=== PATIENT | male | born 1980 | race Caucasian/White ===

== ENCOUNTER 2018-05-16 14:33 | Emergency (ER) | payer MEDICARE, SELFPAY ==
[2018-05-16 14:34] VITALS: BP 98/66; PULSE 93; RESP 16; TEMP 37; O2SAT 98; BMI 21.2
--- NOTE | 2018-05-16 15:37 | ED.DCSUM_ITS ---
- ER Visit Summary Date of Service: 05/16/18 Chief Complaint: rectal pain and swelling History of Present Illness: The patient is a 38 M with history of Crohn's disease who presents for rectal pain and swelling. Patient states it is been gradually worsening for 2 weeks. It is continuous. Pain is sharp and burning. Patient does have history of hemorrhoids but assumed the pain and swelling is related to his Crohn's disease. He denies any abdominal pain, nausea, vomiting , diarrhea, blood in stool or bright red blood per rectum. No urinary symptoms. Patient is currently not on any medications and does not have a primary care doctor. No fever, chest pain, shortness of breath, cough or other symptoms other than the rectal pain and swelling. Physical Examination: Patient is well-nourished well-developed sitting in bed in no distress. Abdomen is soft, nontender, nondistended. Skin is warm and dry, no rash. Rectal exam shows a large external tender hemorrhoid, pink, no obvious thrombosis. No palpable masses in the rectal vault. No blood on the left. Brown stool on glove. Remainder of exam unremarkable. Test Results: None indicated Emergency Department Course and Treatment: Patient has a painful swollen external hemorrhoid that does not appear thrombosed, thus excision is not indicated. Patient was given a prescription for rectal hydrocortisone cream, rectal phenylephrine/Pramixone cream, and stool softeners. He was advised to try sitz baths. He was given follow-up information for a surgeon if he does not have improvement in his external hemorrhoids or if his condition worsens. Patient was discharged home. Treatment Plan: [] Disposition: Discharge home Impression: External hemorrhoid with associated pain This note was generated with [employer] dictation software. It may contain incorrect words, spelling, and punctuation that were not noted in review of the chart prior to signing ED Disposition - Plan for ED Patient: Disposition: Home or Assisted Living Chief Complaint: Abd Pain Instructions: ED Hemorrhoids Prescriptions: Bisacodyl [Dulcolax] 5 mg PO DAILY 14 Days #14 tablet. Hydrocortisone [Preparation H] 26 gm TP 4X/DAY PRN PRN 10 Days #1 cream..g. PRN Reason: hemorrhoid pain Phenyleph/Pramoxin/Glycr/W.pet [Preparation H Cream] 26 gm RC 4X/DAY PRN PRN 10 Days #1 cream..g. PRN Reason: hemorrhoid pain Referrals: Sonya Rolon MD [STAFF PHYSICIAN] - 1 Week if not improving Additional Instructions: You have a swollen external hemorrhoid. Please use the hydrocortisone cream and the preparation H phenylephrine preparation to help with swelling and pain. Use the stool softener to help keep your stools soft to help prevent further pain. Soak in a warm bath to help with pain and swelling. If you are not having improvement in 3-5 days, call the surgeon on this paperwork to make an appointment for further evaluation and discussion of need for surgical removal. If you have any worsening of your condition or any new concerning symptoms, please return immediately to the emergency department for another evaluation.
--- NOTE | 2018-05-16 16:05 | ED.RN ---
this rn in to dc pt. pt asked for food. this rn states that she is discharging him and he can get something when he leaves. pt states to this rn that he is homeless, asked pt where he was going to get his prescription filled. pt states he was not sure. pt advised to go to people to people for assistance. this rn provided pt with a sandwich and snacks for the road
== END 2018-05-16 16:10 | disposition home or self-care (01) ==
PROVIDERS: Emergency Provider Emergency Medicine
DX: K64.4 Residual hemorrhoidal skin tags (principal); K50.90 Crohn's disease, unspecified, without complications; Z72.0 Tobacco use
CPT/HCPCS: 99282

== ENCOUNTER 2018-12-19 04:55 | Emergency (ER) | payer MEDICARE, SELFPAY ==
[2018-12-19 04:56] VITALS: BP 148/91; PULSE 110; RESP 16; TEMP 36.4; O2SAT 98; BMI 21.6
[2018-12-19 05:26] LABS: Absolute Lymphocyte Count 1.86 X10^3/ul (0.83-4.51); Absolute Neutrophil Count 2.4 X10^3/uL (2.0-7.7); Basophil# 0.02 X10^3/uL; Basophil% 0.4 % (0-1); Eosinophil# 0.17 X10^3/uL; Eosinophils% 3.5 % (0-5); Hematocrit 42.9 % (40-54); Hemoglobin 14.5 g/dl (13.0-16.5); Lymphocyte # 1.86 X10^3/ul (4.0); Lymphocyte % 37.9 % (19-41); Mean Corp Hgb Conc 33.8 g/gl (32-36); Mean Corpuscular Hgb 30.2 pg (27.0-32.0); Mean Corpuscular Volume 89.4 fL (80-94); Mean Platelet Vol. 9.4 fl (6.2-12.0); Monocyte# 0.44 X10^3/uL; Neutrophil # 2.42 X10^3/uL (2.7-7.7); Neutrophil % 49.2 % (47-70); Platelet Count 306 K/mm3 (150-450); RBC Distribution Width CV 12.9 % (11.6-14.6); White Blood Count 4.9 K/mm3 (4.4-11.0)
[2018-12-19 05:27] LABS: POSITIVE COUNT NO; POSITIVE DIFFERENTIAL NO; POSITIVE MORPHOLOGY NO
--- NOTE | 2018-12-19 05:39 | ED.VISSUMM ---
- ER Visit Summary Date of Service: 12/19/18 Chief Complaint: Flank pain History of Present Illness: The patient is a 38 M who presents with pain in his right flank and points to his costovertebral angle. This is been present for 3 days. He believes it is most likely related to a Crohn's flare. He does have a history of Crohn's disease but does not currently have a primary care physician or clinical pharmacy manager. He is not on any maintenance medication. He was on daily prednisone up until a few years ago. Over the last 2 days he has developed diarrhea as well as bright red blood in his stool. He does note that his stool was more solid today however. No nausea vomiting or fevers. Physical Examination: Heart rate 110 vitals otherwise normal Resting comfortably no distress he is not toxic appearing Heart is regular rhythm tachycardia Lungs are clear Abdomen soft no reproducible tenderness nondistended no guarding no rebound No flank or CVA tenderness Test Results: CBC normal. CMP, lipase unremarkable except potassium 3.1. Urinalysis shows ketones no evidence of infection. Emergency Department Course and Treatment: Patient was treated with IV fluids and Toradol here. Given reports of increased diarrhea and blood in stool we will treat with a prednisone burst. He was given a referral to establish a primary care physician. He understands to return for new or worsening symptoms. Patient discharged Treatment Plan: [] Disposition: Discharge Impression: Right flank pain Crohn's disease This note was generated with [employer] dictation software. It may contain incorrect words, spelling, and punctuation that were not noted in review of the chart prior to signing ED Disposition - Plan for ED Patient: Referrals: Care Physician,No Primary [Primary Care Provider] -
[2018-12-19] MEDS: 0.9% Normal Saline 1,000 ML 1000 ML IV (05:47)
[2018-12-19 05:48] LABS: ALB/GLOB Ratio 1.3 RATIO (0.9-2.4); AST(SGOT) 19 U/L (15-37); Alanine Aminotransfer ALT/SGPT 25 U/L (16-61); Albumin, Serum 3.8 g/dL (3.2-5.0); Alkaline Phosphatase 69 U/L (45-117); Anion Gap 8 (5-15); BUN 9 mg/dL (7-18); BUN/Creat Ratio 12.9 RATIO (10-20); Calcium,Total 8.8 mg/dL (8.5-10.1); Chloride 106 mmol/L (98-107); EST Glomerular Filtration Rate 134 mL/min (>60); Est Glom Filt Rate - Afr Amer 162 mL/min (>60); Estimated Creatinine Clearance 129.26 ml/min; Glucose 88 mg/dL (74-106); Lipase 119 U/L (73-393); Potassium 3.1 mmol/L (3.5-5.1); Protein, Total 6.8 g/dL (6.4-8.2); Sodium Level 140 mmol/L (136-145)
[2018-12-19] MEDS: Ketorolac 30 MG/ML Syringe IV (05:48)
[2018-12-19 05:58] LABS: Bacteria 0 SEEN /hpf (None Seen); Red Blood Cells-Urine 0 SEEN /hpf (0-5); Squamous Epithelial Cells - UA 0 SEEN /hpf (0-5)
[2018-12-19 06:10] LABS: White Blood Cells 0-5 SEEN /hpf (0-5)
[2018-12-19 06:11] LABS: Calcium Oxalate Crystals Ur 2+ /hpf (<or=2+); Color, Urine Yellow (Yellow); Glucose, Dipstick NEGATIVE (Normal); Mucous, Urine 2+ /hpf (<or=2+); Protein-Dipstick 30 mg/dl (Negative); Specific Gravity, Urine 1.025 (1.002-1.030); Urine Bilirubin Dipstick 1 mg/dL (Negative); Urine Clarity Clear (Clear)
[2018-12-19 06:12] LABS: Leukocyte Esterase-Dipstick 25 /ul (Negative); Nitrite-Dipstick Negative (Negative); Occult Blood-Urine Negative /ul (Negative); Urine Urobilinogen 1 mg/dl (Normal)
[2018-12-19 06:13] LABS: Ketone-Dipstick 150 mg/dl (Negative)
--- NOTE | 2018-12-19 06:20 | ED.DEP ---
ED Disposition - Plan for ED Patient: Instructions: ED Inflam Bowel Disease Crohn Prescriptions: Prednisone [Deltasone] 60 mg PO DAILY #15 tab Referrals: Care Physician,No Primary [Primary Care Provider] -
[2018-12-19 06:25] VITALS: BP 140/95; PULSE 88; RESP 18; O2SAT 100
== END 2018-12-19 06:30 | disposition home or self-care (01) ==
PROVIDERS: Emergency Provider Emergency Medicine
DX: R10.9 Unspecified abdominal pain (principal); K50.90 Crohn's disease, unspecified, without complications; Z72.0 Tobacco use
CPT/HCPCS: 80053; 81001; 83690; 85025; 96361; 96374; 99285; J7030; A4216

== ENCOUNTER 2019-06-14 20:16 | Emergency (ER) | payer MEDICAID, SELFPAY ==
[2019-06-14 20:16] VITALS: BP 121/71; PULSE 106; RESP 18; TEMP 36.8; BMI 24.3
[2019-06-14 20:50] LABS: Absolute Lymphocyte Count 1.42 X10^3/uL (0.83-4.51); Absolute Neutrophil Count 4.4 X10^3/uL (2.0-7.7); Basophil# 0.02 X10^3/uL; Basophil% 0.3 % (0-1); Eosinophil# 0.34 X10^3/uL; Eosinophils% 4.9 % (0-5); Hematocrit 39.5 % (40-54); Hemoglobin 13.3 g/dL (13.0-16.5); Lymphocyte # 1.42 X10^3/ul (4.0); Lymphocyte % 20.3 % (19-41); Mean Corp Hgb Conc 33.7 g/dL (32-36); Mean Corpuscular Hgb 31.4 pg (27.0-32.0); Mean Corpuscular Volume 93.4 fL (80-94); Mean Platelet Vol. 8.9 fl (6.2-12.0); Monocyte# 0.78 X10^3/uL; Monocyte% 11.1 % (0-10); NRBC Flagged by Analyzer 0 % (0-5); Neutrophil # 4.43 X10^3/uL (2.7-7.7); Neutrophil % 63.3 % (47-70); Platelet Count 317 K/mm3 (150-450); RBC Distribution Width CV 11.7 % (11.6-14.6); RBC Distribution Width SD 39.9 fl (35.1-43.9); Red Blood Count 4.23 M/mm3 (4.6-6.2)
[2019-06-14 21:04] LABS: Anion Gap 5 (5-15); BUN 4 mg/dL (7-18); BUN/Creat Ratio 5.2 RATIO (10-20); Calcium,Total 8.2 mg/dL (8.5-10.1); Chloride 110 mmol/L (98-107); Creatinine, Serum 0.77 mg/dL (0.70-1.30); EST Glomerular Filtration Rate 119 mL/min (>60); Est Glom Filt Rate - Afr Amer 144 mL/min (>60); Estimated Creatinine Clearance 123.38 ml/min; Glucose 95 mg/dL (74-106); Potassium 3.4 mmol/L (3.5-5.1); Sodium Level 142 mmol/L (136-145)
[2019-06-14 21:19] LABS: Alcohol, Blood (Medical)-Serum < 3.0 mg/dL
[2019-06-14 22:17] LABS: Amphetamine Urine VISTA POSITIVE (<1000 ng/mL); Barbiturate Urine VISTA NEGATIVE (< 200 ng/mL); Benzodiazepine Urine VISTA NEGATIVE (< 200 ng/mL); Cocaine Urine VISTA NEGATIVE (< 300 ng/mL); Ecstacy Urine VISTA NEGATIVE (< 500 ng/mL); Methadone Urine VISTA NEGATIVE (< 300 ng/mL); PCP Urine VISTA NEGATIVE (< 25 ng/mL); THC Urine VISTA NEGATIVE (< 50 ng/mL); Vista UDS pH Range 5
--- NOTE | 2019-06-14 22:18 | ED.VISSUMM ---
- ER Visit Summary Date of Service: 06/14/19 Chief Complaint: Suicidal ideation History of Present Illness: The patient is a 39 M who presents with suicidal thoughts. This started today. He states he feels depressed. He has been trying to find the Social Security office to get his benefits restarted but he has not been able to find it. He was wandering around in circles today. He has no specific plan but then states any way that I can do what I would. He has not tried anything today. He has been admitted a few years ago to a psychiatric hospital. Physical Examination: Vital signs reviewed. HEENT exam unremarkable. Heart is regular rate and rhythm without murmurs. Lungs are clear to auscultation. Abdomen is soft and nontender. Extremities reveal no edema. Skin exam normal. Neurologic exam normal. He does have a flat affect. He does voice suicidal thoughts. Test Results: Laboratory studies unremarkable except for potassium 3.4, chloride 110. Tox screen does have amphetamines. Alcohol normal Emergency Department Course and Treatment: She will be evaluated by crisis. Disposition is pending their evaluation. Treatment Plan: [] Disposition: Pending Impression: Suicidal thoughts This note was generated with [employer] dictation software. It may contain incorrect words, spelling, and punctuation that were not noted in review of the chart prior to signing ED Disposition - Plan for ED Patient: Referrals: Care Physician,No Primary [Primary Care Provider] -
[2019-06-14 22:44] VITALS: BP 125/77; PULSE 95; RESP 18; O2SAT 97
[2019-06-14] MEDS: Calcium Carbonate 500 MG Tablet 1000 MG PO (22:52)
[2019-06-14 23:00] VITALS: RESP 18
[2019-06-15] VITALS (13 sets, daily range): BP systolic 106–137; BP diastolic 65–76; PULSE 73–83; RESP 15–18; O2SAT 98–99
--- NOTE | 2019-06-15 04:49 | EKG12_ITS ---
Test Reason : MHC Blood Pressure : / mmHG Vent. Rate : 090 BPM Atrial Rate : 090 BPM P-R Int : 132 ms QRS Dur : 094 ms QT Int : 364 ms P-R-T Axes : 062 065 067 degrees QTc Int : 445 ms Normal sinus rhythm Normal ECG Confirmed by VICTOR HUGO DILLARD, GLENNY ([id number]), visual effects editor CESAR HERNANDEZ ([id number]) on 06/18/2019 9:15:24 AM Referred By: Confirmed By:GLENNY GAY MD
--- NOTE | 2019-06-15 05:00 | ED.RN ---
NO OLD EKGS IN MUSE
[2019-06-15 05:09] LABS: AST(SGOT) 51 U/L (15-37); Alanine Aminotransfer ALT/SGPT 54 U/L (16-61); Albumin, Serum 3.2 g/dL (3.2-5.0); Alkaline Phosphatase 52 U/L (45-117); Globulin 2.8 g/dL (2.2-4.2)
--- NOTE | 2019-06-15 06:49 | ED.RN ---
patient has been accepted at [facility] at this time waiting for bed to open up
--- NOTE | 2019-06-15 09:36 | ED.RN ---
PT GIVEN BREAKFAST TRAY AT APPROXIMATELY 0800. PT DENIED FURTHER NEEDS AT THAT TIME.
== END 2019-06-15 16:30 ==
PROVIDERS: Emergency Medicine; Emergency Provider Emergency Medicine
DX: R45.851 Suicidal ideations (principal); K50.90 Crohn's disease, unspecified, without complications; M79.7 Fibromyalgia; F15.90 Other stimulant use, unspecified, uncomplicated; Z72.0 Tobacco use
CPT/HCPCS: 80048; 80076; 80307; 80320; 85025; 93005; 99284; G0480

== ENCOUNTER 2019-07-09 20:15 | Emergency (ER) | payer MEDICAID, SELFPAY ==
[2019-07-09 20:16] VITALS: BP 150/97; PULSE 120; RESP 18; TEMP 36.9; O2SAT 96; BMI 24.3
--- NOTE | 2019-07-09 21:26 | ED.VIS.GEN ---
History of Present Illness Chief Complaint: Eye Problem Detail of Chief Complaint: Right eye pain and watering Informant: Patient Onset: Today Context: Sudden Onset Current Severity: Moderate Maximum Severity: Moderate Narrative: Patient presents with pain, lights with activity, and watering to his right eye. He thinks he scratched his eye. Symptoms started shortly after taking a shower. He states he been working outside earlier in the day. He does report blurry vision from his right eye. He does not wear glasses or contacts. Past Medical History - Allergies and Home Meds Allergies/Adverse Reactions: Allergies Penicillins Allergy (Verified 07/09/19 20:18) Unknown Primary Care Physician: Care Physician,No Primary [Primary Care Provider] - Prior records reviewed: Yes Past Medical History: - - Reviewed Smoking Status: Current some day smoker Review of Systems General: Denies: Chills, Fever Eyes: Reports: Blurred vision - right ENT: Denies: Bilateral ear pain Cardiovascular: Denies: Chest pain Respiratory: Denies: Dyspnea Gastrointestinal: Denies: Abdominal pain Skin: Denies: Rash Physical Exam Vital Signs/Narrative: Vital Signs Temp Pulse Resp BP Pulse Ox 07/09/19 20:16 98.5 F 120 H 18 150/97 H 96 Inital Vital Signs reviewed: Yes General: Well nourished, Well developed Head: Normocephalic Eyes: - - Right eye injection and tearing. Pupils equal and reactive. Extraocular movements intact. ENT: Moist mucous membranes Cardiovascular: Tachycardia Respiratory: No distress, CTA bilaterally Abdomen: Soft, Nontender Skin: Normal color Neurological: Alert, Oriented x3 Psychological: Normal affect Diagnostic/Tx/Re-eval - Medical Decision Making Tetracaine is applied to the right eye which controls his pain. Fluorescein is applied and there is focal uptake with a small abrasion directly over the pupil. Patient be treated with gentamicin ophthalmic drops. He is referred to Dr. Hall if not improving. ED Disposition - Plan for ED Patient: Disposition: Home or Assisted Living Diagnosis: Corneal abrasion Instructions: ED Corneal Abrasion Referrals: Thad Hall MD [STAFF PHYSICIAN] - 3-5 Days if not improving Additional Instructions: Gentamicin eye drops - one drop 4x/day until pain resolved for 24 hours
[2019-07-09] MEDS: Tetracaine 0.5% Ophthalmic Bottle 1 DRP RIGHT EYE (21:46)
[2019-07-09] MEDS: Fluorescein 1 MG STRIP 1 STRIP RIGHT EYE (21:46)
[2019-07-09] MEDS: Gentamicin Sulfate 1 OPTH.BTL 1 DRP RIGHT EYE (22:19)
[2019-07-09 22:20] VITALS: PULSE 103; O2SAT 99
== END 2019-07-09 22:21 | disposition home or self-care (01) ==
PROVIDERS: Emergency Provider Emergency Medicine
DX: S05.01XA Injury of conjunctiva and corneal abrasion without foreign body, right eye, initial encounter (principal); X58.XXXA Exposure to other specified factors, initial encounter; Y93.9 Activity, unspecified; Y92.9 Unspecified place or not applicable; F17.200 Nicotine dependence, unspecified, uncomplicated
CPT/HCPCS: 99283

== ENCOUNTER 2019-08-17 20:19 | Emergency (ER) | payer MEDICAID, SELFPAY ==
[2019-08-17 20:21] VITALS: BP 119/64; PULSE 85; RESP 18; TEMP 36.4; O2SAT 100; BMI 24.3
--- NOTE | 2019-08-17 20:29 | EKG12_ITS ---
Test Reason : DYSRHYTHMIA Blood Pressure : / mmHG Vent. Rate : 072 BPM Atrial Rate : 072 BPM P-R Int : 128 ms QRS Dur : 094 ms QT Int : 388 ms P-R-T Axes : 050 060 052 degrees QTc Int : 424 ms Normal sinus rhythm Normal ECG Confirmed by VICTOR HUGO DILLARD, GLENNY ([id number]), tape editor LUNA FAITH ([id number]) on 08/20/2019 9:41:52 AM Referred By: SAVANNAH Confirmed By:GLENNY GAY MD
--- NOTE | 2019-08-17 20:30 | ED.VIS.GEN ---
History of Present Illness Chief Complaint: Dizziness Informant: Patient Onset: Days Context: Gradual Onset Timing: Intermittent Current Severity: Moderate Maximum Severity: Moderate Narrative: The patient is a 39-year-old male with history of neuropathy who presents to the emergency department with dizziness and nerve pain. Patient was currently staying at the [facility] [place] [facility] [employer] [facility] He apparently had left about a week ago. He had left his medications behind. He has been without his gabapentin for about 7 days. He states that he started with some mild nausea. Since then, he describes dizziness as a sensation of motion. He states that he just feels generally weak and not himself. He does have a history of chronic fatigue syndrome. He also has a history of Crohn's disease but is not on any medications. Prior similar symptoms: No Recent Illness/Hospitalization: No Past Medical History - Allergies and Home Meds Allergies/Adverse Reactions: Allergies Penicillins Allergy (Verified 08/17/19 20:23) Unknown Primary Care Physician: Care Physician,No Primary [Primary Care Provider] - Prior records reviewed: Yes Past Medical History: - - Crohn's, neuropathy Smoking Status: Current some day smoker Review of Systems General: Denies: Chills, Fever, Sweats Eyes: Denies: Visual changes - bilaterally, Diplopia ENT: Denies: Rhinorrhea, Sore throat Cardiovascular: Denies: Chest pain, Palpitations Respiratory: Denies: Dyspnea, Cough, Dyspnea on exertion Gastrointestinal: Denies: Abdominal pain, Nausea, Vomiting, Diarrhea, Melena, Hematochezia Genitourinary: Denies: Dysuria, Hematuria, Frequency Musculoskeletal: Reports: Myalgias, Arthralgias. Denies: Back pain, Extremity Pain Skin: Denies: Rash, Wounds Neurological: Denies: Headache, Weakness, Numbness Physical Exam Vital Signs/Narrative: Vital Signs Temp Pulse Resp BP Pulse Ox 08/17/19 20:21 97.5 F L 85 18 119/64 100 Inital Vital Signs reviewed: Yes General: Well nourished, Well developed, No Acute Distress Head: Normocephalic, Atraumatic Eyes: Perrl, EOMI ENT: Moist mucous membranes, No rhinorrhea Neck: Supple, Nontender Cardiovascular: Regular rate, Regular rhythm, No murmurs Respiratory: No distress, CTA bilaterally, Chest nontender Abdomen: Soft, Nontender, Nondistended, Normal bowel sounds Back: Nontender, Normal Inspection Extremities: Nontender, No edema Skin: Normal color, No rash Neurological: Alert, Oriented x3, Cranial nerves II-XII grossly intact, Normal Strength, Normal Sensation Psychological: Normal affect, Normal Mood Diagnostic/Tx/Re-eval - Rhythm Strip Rhythm Strip: Sinus Rhythm Rate: 90 Ectopy: None - EKG Initial EKG Interpretation: Sinus Rhythm, No Acute Injury Pattern Prior: Unchanged - Medical Decision Making Medically, I do feel the patient symptoms are likely secondary to medication withdrawal. He has been without his gabapentin for 6 to 7 days now. He is afebrile. Is not meningitic or encephalopathic. Metabolic work-up was pursued and was unremarkable. With fluids, he is feeling improved. He does have his prescription at the [facility] and feels that he can get to and take it. He will be given his nighttime dose now to daquan his withdrawal symptoms. He will be discharged. Impression 1. Medication withdrawal ED Disposition - Plan for ED Patient: Instructions: Taking Your Medications Referrals: Care Physician,No Primary [Primary Care Provider] -
[2019-08-17] MEDS: 0.9% Normal Saline 1,000 ML 1000 ML IV (20:47)
[2019-08-17 20:48] VITALS: RESP 18
[2019-08-17 20:54] LABS: Basophil# 0.03 X10^3/uL; Basophil% 0.7 % (0-1); Eosinophil# 0.17 X10^3/uL; Eosinophils% 3.9 % (0-5); Hematocrit 40.3 % (40-54); Lymphocyte % 39.1 % (19-41); Mean Corp Hgb Conc 32.3 g/dL (32-36); Mean Corpuscular Hgb 29.7 pg (27.0-32.0); Mean Platelet Vol. 8.9 fl (6.2-12.0); Monocyte# 0.45 X10^3/uL; Monocyte% 10.3 % (0-10); NRBC Flagged by Analyzer 0 % (0-5); Neutrophil # 1.99 X10^3/uL (2.7-7.7); Neutrophil % 45.8 % (47-70); Platelet Count 328 K/mm3 (150-450); RBC Distribution Width CV 12.5 % (11.6-14.6); RBC Distribution Width SD 42.3 fl (35.1-43.9); Red Blood Count 4.38 M/mm3 (4.6-6.2); White Blood Count 4.4 K/mm3 (4.4-11.0)
[2019-08-17 21:20] LABS: ALB/GLOB Ratio 1.1 RATIO (0.9-2.4); AST(SGOT) 22 U/L (15-37); Alanine Aminotransfer ALT/SGPT 32 U/L (16-61); Albumin, Serum 3.2 g/dL (3.2-5.0); Alkaline Phosphatase 60 U/L (45-117); Anion Gap 6 (5-15); BUN 6 mg/dL (7-18); BUN/Creat Ratio 7.2 RATIO (10-20); Calcium,Total 8.3 mg/dL (8.5-10.1); Chloride 111 mmol/L (98-107); Creatinine, Serum 0.83 mg/dL (0.70-1.30); EST Glomerular Filtration Rate 109 mL/min (>60); Est Glom Filt Rate - Afr Amer 132 mL/min (>60); Estimated Creatinine Clearance 114.46 ml/min; Globulin 2.8 g/dL (2.2-4.2); Glucose 108 mg/dL (74-106); Potassium 4.2 mmol/L (3.5-5.1); Sodium Level 142 mmol/L (136-145)
[2019-08-17] MEDS: Gabapentin 600 MG Tablet PO (21:45)
[2019-08-17 21:47] VITALS: BP 109/86; PULSE 72; RESP 16; O2SAT 100
== END 2019-08-17 21:50 | disposition home or self-care (01) ==
LOC: ED 21:04
PROVIDERS: Emergency Provider Emergency Medicine
DX: F19.230 Other psychoactive substance dependence with withdrawal, uncomplicated (principal); K50.90 Crohn's disease, unspecified, without complications; G62.9 Polyneuropathy, unspecified; R53.82 Chronic fatigue, unspecified; F17.200 Nicotine dependence, unspecified, uncomplicated
CPT/HCPCS: 80053; 85025; 93005; 96360; 99285; J7030; A4216

== ENCOUNTER 2019-09-11 20:49 | Emergency (ER) | payer MEDICAID, SELFPAY ==
[2019-09-11 20:49] VITALS: BP 127/78; PULSE 133; RESP 17; TEMP 36.5; O2SAT 100; BMI 23.6
--- NOTE | 2019-09-11 20:56 | EKG12_ITS ---
Test Reason : MHC Blood Pressure : / mmHG Vent. Rate : 132 BPM Atrial Rate : 132 BPM P-R Int : 128 ms QRS Dur : 090 ms QT Int : 304 ms P-R-T Axes : 068 069 067 degrees QTc Int : 450 ms Sinus tachycardia Otherwise normal ECG Confirmed by ALEJANDRA DILLARD, NORBERT ([id number]), sports editor CESAR HERNANDEZ ([id number]) on 09/17/2019 11:49:29 AM Referred By: SAVANNAH Confirmed By:CORINNA ROBERTS MD
--- NOTE | 2019-09-11 21:03 | ED.VIS.GEN ---
History of Present Illness Chief Complaint: Mental Health Informant: Patient Onset: Days Context: Gradual Onset Timing: Continuous Current Severity: Moderate Maximum Severity: Moderate Narrative: The patient is a 39-year-old male with history of schizoaffective disorder who presents to the emergency department with increasing paranoia and manic behavior. He states that he is unsure if he has been taking his medications. Over the past few days, he has been increasingly manic. He states he is been restless, feels like he cannot relax, and has been thinking that there are people following him and looking after him. He denies being suicidal or homicidal. He denies any drug use. He denies any fevers or chills. Prior similar symptoms: Yes Recent Illness/Hospitalization: No Past Medical History - Allergies and Home Meds Allergies/Adverse Reactions: Allergies Penicillins Allergy (Verified 09/11/19 20:49) Unknown Primary Care Physician: Care Physician,No Primary [Primary Care Provider] - Prior records reviewed: Yes Past Medical History: - - Schizoaffective disorder Smoking Status: Current every day smoker Review of Systems General: Denies: Chills, Fever, Sweats Eyes: Denies: Visual changes - bilaterally, Diplopia ENT: Denies: Rhinorrhea, Sore throat Cardiovascular: Denies: Chest pain, Palpitations Respiratory: Denies: Dyspnea, Cough, Dyspnea on exertion Gastrointestinal: Denies: Abdominal pain, Nausea, Vomiting, Diarrhea, Melena, Hematochezia Genitourinary: Denies: Dysuria, Hematuria, Frequency Musculoskeletal: Denies: Back pain, Extremity Pain Skin: Denies: Rash, Wounds Neurological: Denies: Headache, Weakness, Numbness Psych: Reports: Depression, Anxiety Physical Exam Vital Signs/Narrative: Vital Signs Temp Pulse Resp BP Pulse Ox 09/11/19 20:49 97.7 F L 133 H 17 127/78 H 100 Inital Vital Signs reviewed: Yes General: Well nourished, Well developed, No Acute Distress Head: Normocephalic, Atraumatic Eyes: Perrl, EOMI ENT: Moist mucous membranes, No rhinorrhea Neck: Supple, Nontender Cardiovascular: Regular rate, No murmurs, Tachycardia Respiratory: No distress, CTA bilaterally, Chest nontender Abdomen: Soft, Nontender, Nondistended, Normal bowel sounds Back: Nontender, Normal Inspection Extremities: Nontender, No edema Skin: Normal color, No rash Neurological: Alert, Oriented x3, Cranial nerves II-XII grossly intact, Normal Strength, Normal Sensation Psychological: Normal affect, Normal Mood Diagnostic/Tx/Re-eval - Medical Decision Making The patient presents with increasing neo, paranoia, and increasing abnormal behavior. He does have disorganized thoughts and pressured speech. He denies being suicidal or homicidal. He was given oral Ativan. Screening labs obtained were unremarkable. His EKG demonstrates sinus tachycardia without acute ischemia. Urine is currently pending. The patient will undergo crisis evaluation given his increasing paranoia. Final disposition is pending. Impression 1. Acute neo with paranoia ED Disposition - Plan for ED Patient: Referrals: Care Physician,No Primary [Primary Care Provider] -
[2019-09-11 21:50] LABS: Absolute Neutrophil Count 5.3 X10^3/uL (2.0-7.7); Basophil# 0.02 X10^3/uL; Basophil% 0.3 % (0-1); Eosinophil# 0.09 X10^3/uL; Eosinophils% 1.2 % (0-5); Hemoglobin 13.7 g/dL (13.0-16.5); Lymphocyte % 17.6 % (19-41); Mean Corp Hgb Conc 34.3 g/dL (32-36); Mean Corpuscular Hgb 30.3 pg (27.0-32.0); Mean Corpuscular Volume 88.5 fL (80-94); Monocyte# 0.64 X10^3/uL; Monocyte% 8.7 % (0-10); NRBC Flagged by Analyzer 0 % (0-5); Neutrophil # 5.32 X10^3/uL (2.7-7.7); Neutrophil % 72.1 % (47-70); Platelet Count 370 K/mm3 (150-450); RBC Distribution Width CV 12.4 % (11.6-14.6); RBC Distribution Width SD 40.2 fl (35.1-43.9); Red Blood Count 4.52 M/mm3 (4.6-6.2); White Blood Count 7.4 K/mm3 (4.4-11.0)
[2019-09-11] MEDS: LORazepam 1 MG Tablet 2 MG PO (21:58)
--- NOTE | 2019-09-11 21:58 | ED.RN ---
pt paranoid about taking PO ativan, refused even with Dr's reassurance. Then told RN he would take them. 2 new ativan pulled from [facility]. With much encouragement- pt took 1 mg. refused second. med wasted.
[2019-09-11 22:10] LABS: ALB/GLOB Ratio 1.3 RATIO (0.9-2.4); AST(SGOT) 21 U/L (15-37); Alanine Aminotransfer ALT/SGPT 28 U/L (16-61); Albumin, Serum 3.7 g/dL (3.2-5.0); Alkaline Phosphatase 71 U/L (45-117); Anion Gap 7 (5-15); BUN 12 mg/dL (7-18); BUN/Creat Ratio 12.7 RATIO (10-20); Calcium,Total 8.7 mg/dL (8.5-10.1); Chloride 106 mmol/L (98-107); Creatinine, Serum 0.95 mg/dL (0.70-1.30); EST Glomerular Filtration Rate 93 mL/min (>60); Est Glom Filt Rate - Afr Amer 113 mL/min (>60); Globulin 2.8 g/dL (2.2-4.2); Glucose 116 mg/dL (74-106); Potassium 4.2 mmol/L (3.5-5.1); Protein, Total 6.5 g/dL (6.4-8.2); Sodium Level 139 mmol/L (136-145)
[2019-09-11 23:57] LABS: Amphetamine Urine VISTA POSITIVE (<1000 ng/mL); Barbiturate Urine VISTA NEGATIVE (< 200 ng/mL); Benzodiazepine Urine VISTA NEGATIVE (< 200 ng/mL); Cocaine Urine VISTA NEGATIVE (< 300 ng/mL); Ecstacy Urine VISTA POSITIVE (< 500 ng/mL); Methadone Urine VISTA NEGATIVE (< 300 ng/mL); PCP Urine VISTA NEGATIVE (< 25 ng/mL); THC Urine VISTA NEGATIVE (< 50 ng/mL); Vista UDS pH Range 6
[2019-09-12 00:22] VITALS: RESP 16
--- NOTE | 2019-09-12 00:23 | ED.DEP ---
ED Disposition - Plan for ED Patient: Disposition: Home or Assisted Living Diagnosis: Paranoia Instructions: Schizo-Affective Disorder Referrals: Counseling,Center [GROUP OF PHYSICIANS] - As soon as possible
[2019-09-12 00:34] VITALS: BP 149/92; PULSE 110; RESP 14; O2SAT 100
== END 2019-09-12 01:14 | disposition home or self-care (01) ==
PROVIDERS: Emergency Provider Emergency Medicine
DX: F25.9 Schizoaffective disorder, unspecified (principal); Z79.899 Other long term (current) drug therapy; F17.200 Nicotine dependence, unspecified, uncomplicated
CPT/HCPCS: 36415; 80053; 80307; 80320; 85025; 93005; 99283; G0480

== ENCOUNTER 2019-09-30 02:47 | Emergency (ER) | payer MEDICAID, SELFPAY ==
[2019-09-30 02:49] VITALS: BP 146/102; PULSE 88; RESP 16; TEMP 36.4; O2SAT 100; BMI 22.8
[2019-09-30 04:27] VITALS: BP 130/78; PULSE 75; RESP 16; O2SAT 100
--- NOTE | 2019-09-30 05:46 | ED.VIS.BACK ---
History of Present Illness Chief Complaint: Back Informant: Patient Onset: Days Context: Gradual Onset Narrative: Patient is a 39-year-old male presenting with a vague complaint of back pain. He states he has been having some lower back pain however it is currently mild. He denies any injury. He states he is been homeless for 3 years and is staying in the [facility]. He is more concerned because he is cold and wet. He is requesting a TB test as well as to check his B12 level. Patient states he wants a physical so he can qualify for further benefits. Patient currently Past Medical History - Allergies and Home Meds Allergies/Adverse Reactions: Allergies Penicillins Allergy (Verified 09/11/19 20:49) Unknown Primary Care Physician: Arlene Quintero [Primary Care Provider] - Past Medical History: - - Affective disorder, chronic pain, depression, bipolar disorder Lives: Homeless, - Smoking Status: Current every day smoker Review of Systems General: Reports: Malaise. Denies: Chills, Fever, Sweats Eyes: Denies: Visual changes - bilaterally, Diplopia ENT: Denies: Rhinorrhea, Sore throat Cardiovascular: Denies: Chest pain, Palpitations Respiratory: Denies: Dyspnea, Cough, Dyspnea on exertion Gastrointestinal: Denies: Abdominal pain, Nausea, Vomiting, Diarrhea, Melena, Hematochezia Genitourinary: Denies: Dysuria, Hematuria, Frequency Musculoskeletal: Reports: Extremity Pain - Bilateral feet pain. Denies: Back pain Skin: Denies: Rash, Wounds Neurological: Denies: Headache, Weakness, Numbness Psych: Reports: Depression, Suicidal thoughts Physical Exam Vital Signs/Narrative: Vital Signs Temp Pulse Resp BP Pulse Ox 09/30/19 04:27 75 16 130/78 H 100 09/30/19 02:49 97.6 F L 88 16 146/102 H 100 Inital Vital Signs reviewed: Yes General: Well nourished, Well developed, Unkempt Head: Normocephalic, Atraumatic Eyes: Perrl, EOMI ENT: Moist mucous membranes, No rhinorrhea, TM's clear Neck: Supple, Nontender Cardiovascular: Regular rate, Regular rhythm, No murmurs Respiratory: No distress, CTA bilaterally, Chest nontender Abdomen: Soft, Nontender, Nondistended, Normal bowel sounds Back: Normal Inspection, Nontender. Negative for: Spinal tenderness, Paraspinal Tenderness, CVA tenderness Extremeties: Nontender, No edema Skin: No rash, - - Maceration and discoloration at the base of the feet consistent with trench foot Neuro: Alert, Oriented, Normal Strength, Normal Sensation, Normal DTR, Normal Gait Psychological: Depressed, - - Patient initially comes in asking for resources and stating that he does feel that he wants to shoot himself because of his situation. Patient is not have access to a gun. Patient then becomes more tangential and states that he feels that there is a collective group that is keeping him homeless and limiting his ability to get help. Patient does express hopelessness. He feels that he needs to fight others but is very nonspecific about who these other people are. Diagnostic/Tx/Re-eval Laboratory Data 09/30/19 09/30/19 09/30/19 06:25 06:25 06:25 WBC 6.5 RBC 4.98 Hgb 14.8 Hct 43.5 MCV 87.3 MCH 29.7 MCHC 34.0 RDW Std Deviation 40.0 RDW Coeff of Faraz 12.7 Plt Count 436 MPV 8.8 Immature Gran % (Auto) 0.300 Neut % (Auto) 61.0 Lymph % (Auto) 28.2 [place] % (Auto) 7.4 Eos % (Auto) 2.8 Baso % (Auto) 0.3 Absolute Neuts (auto) 4.0 Absolute Lymphs (auto) 1.83 Nucleated RBC % 0 Sodium 135 L Potassium 3.4 L Chloride 101 Carbon Dioxide 28.0 Anion Gap 6 BUN 14 Creatinine 1.09 Estim Creat Clear Calc 86.65 Est GFR (MDRD) Af Amer 96 Est GFR (MDRD) Non-Af 79 BUN/Creatinine Ratio 12.8 Glucose 98 Calcium 9.2 Ethyl Alcohol < 3.0 - Medical Decision Making Patient is initially checked in for evaluation of back pain. He does not seem to actually have any back pain at this time. As I spent time talking to them patient seems to have more tangential and paranoid speech. He does not display capacity to care for himself as he seems to be homeless and is does not seem to have logical or goal-directed thoughts. Patient also is admitting to suicidal ideations. He does seem to want help from his situation but I do not know if he is capable of doing these things on his own. Is also possible that patient is malingering because it is cold outside and he is homeless. Patient is cooperative and medical clearance is performed. Patient be evaluated by crisis. Patient signed out to oncoming physician for final medical clearance and final evaluation by crisis for disposition. ED Disposition - Plan for ED Patient: Diagnosis: Depression, Trench feet Referrals: Arlene Quintero [Primary Care Provider] -
--- NOTE | 2019-09-30 06:10 | ED.RN ---
Provided PT with resources as requested. Informed PT of services at [facility] counseling services, and calling his insurance for rides to medical appointments. PT states he does not have a bus card, unable to get to [facility] as he cannot walk that far. PT did not like my resources and stated he could just claim that he was suicidal so he could go to [facility] and they would get everything he needed set up. Pt stated he could have a friend pick him up from [facility] but they were unable to get him to [place]. PT informed of [facility], he stated they were full and he has asked a few times, over the past two years and they are full. PT has not asked recently.
[2019-09-30 06:32] LABS: Absolute Lymphocyte Count 1.83 X10^3/uL (0.83-4.51); Basophil# 0.02 X10^3/uL; Basophil% 0.3 % (0-1); Eosinophil# 0.18 X10^3/uL; Eosinophils% 2.8 % (0-5); Hematocrit 43.5 % (40-54); Hemoglobin 14.8 g/dL (13.0-16.5); Lymphocyte # 1.83 X10^3/ul (4.0); Lymphocyte % 28.2 % (19-41); Mean Corpuscular Hgb 29.7 pg (27.0-32.0); Mean Corpuscular Volume 87.3 fL (80-94); Mean Platelet Vol. 8.8 fl (6.2-12.0); Monocyte# 0.48 X10^3/uL; Monocyte% 7.4 % (0-10); NRBC Flagged by Analyzer 0 % (0-5); Neutrophil # 3.95 X10^3/uL (2.7-7.7); Platelet Count 436 K/mm3 (150-450); RBC Distribution Width CV 12.7 % (11.6-14.6); Red Blood Count 4.98 M/mm3 (4.6-6.2); White Blood Count 6.5 K/mm3 (4.4-11.0)
[2019-09-30 06:45] LABS: Anion Gap 6 (5-15); BUN 14 mg/dL (7-18); BUN/Creat Ratio 12.8 RATIO (10-20); Calcium,Total 9.2 mg/dL (8.5-10.1); Chloride 101 mmol/L (98-107); Creatinine, Serum 1.09 mg/dL (0.70-1.30); EST Glomerular Filtration Rate 79 mL/min (>60); Est Glom Filt Rate - Afr Amer 96 mL/min (>60); Estimated Creatinine Clearance 86.65 ml/min; Glucose 98 mg/dL (74-106); Potassium 3.4 mmol/L (3.5-5.1); Sodium Level 135 mmol/L (136-145)
--- NOTE | 2019-09-30 07:03 | ED.RN ---
PER DR. GARCIA, PATIENT DOES NOT NEED A 1:1 SITTER.
[2019-09-30 07:08] LABS: Alcohol, Blood (Medical)-Serum < 3.0 mg/dL
--- NOTE | 2019-09-30 08:46 | ED.RN ---
AFTER MANY ATTEMPTS TO GET THE PT TO GIVE A URINE SAMPLE AND SEVERAL DRINKS, PT REFUSED TO TRY. EXPLAINED THE NECESSITY AND THE OPTION OF HIM TRYING OR A STRAIGHT CATH BEING USED TO GET THE SAMPLE. PT IS REFUSING TO COOPERATE. PT IS VOICING HIS WILLINGNESS TO HIT AND FIGHT STAFF AND STANDS UP OUT OF THE BED PULLING HIS HAIR BACK STATING HE IS HOMICIDAL AT THE MOMENT. SECURITY AT BEDSIDE ATTEMPTING TO CONVINCE HIM TO TRY TO VOID. WE LEFT THE ROOM FOR A COUPLE MINUTES TO GIVE HIM THE REQUESTED PRIVACY TO VOID. PT NEVER WENT IN THE THE BR OR TRIED. WITH [facility]S ASSISTANCE PT AGAIN ENCOURAGED TO VOID INSTEAD OF BEING CATHED. PT AFTER MORE CONVERSATION FINALLY VOIDED. CRISIS AND PHYSICIAN IS AWARE.
[2019-09-30 08:56] LABS: Mucous, Urine 0 SEEN /hpf (<or=2+); Squamous Epithelial Cells - UA 0 SEEN /hpf (0-5)
[2019-09-30 09:06] LABS: Color, Urine Yellow (Yellow); Glucose, Dipstick NEGATIVE (Normal); Ketone-Dipstick 5 mg/dl (Negative); Urine Bilirubin Dipstick Negative (Negative); Urine Clarity Sl Cldy (Clear)
[2019-09-30 09:07] LABS: Leukocyte Esterase-Dipstick 500 /ul (Negative); Nitrite-Dipstick Positive (Negative); Occult Blood-Urine 10 /ul (Negative); Protein-Dipstick 30 mg/dl (Negative); Specific Gravity, Urine 1.025 (1.002-1.030); Urine Urobilinogen Normal (Normal)
[2019-09-30 09:08] LABS: Red Blood Cells-Urine 0-5 SEEN /hpf (0-5); White Blood Cells 25-50 SEEN /hpf (0-5)
[2019-09-30 09:09] LABS: Bacteria 1+ /hpf (None Seen)
[2019-09-30 09:12] LABS: Amphetamine Urine VISTA POSITIVE (<1000 ng/mL); Barbiturate Urine VISTA NEGATIVE (< 200 ng/mL); Benzodiazepine Urine VISTA NEGATIVE (< 200 ng/mL); Cocaine Urine VISTA NEGATIVE (< 300 ng/mL); Ecstacy Urine VISTA NEGATIVE (< 500 ng/mL); Methadone Urine VISTA NEGATIVE (< 300 ng/mL); PCP Urine VISTA NEGATIVE (< 25 ng/mL); THC Urine VISTA NEGATIVE (< 50 ng/mL); Vista UDS pH Range 6
--- NOTE | 2019-09-30 09:40 | ED.RN ---
ALONDRA WITH CRISIS IS GOING TO WORK ON PLACEMENT
--- NOTE | 2019-09-30 11:08 | ED.RN ---
ALONDRA WITH CRISIS MADE THE REFERRAL TO [facility] FOR PLACEMENT
[2019-09-30 12:13] VITALS: BP 134/62; PULSE 72; RESP 15; O2SAT 98
[2019-09-30 13:12] VITALS: BP 134/62; PULSE 72; RESP 15; TEMP 36.4; O2SAT 98
== END 2019-09-30 13:14 ==
PROVIDERS: Emergency Provider Emergency Medicine
DX: F32.9 Major depressive disorder, single episode, unspecified (principal); T69.022A Immersion foot, left foot, initial encounter; T69.021A Immersion foot, right foot, initial encounter; R45.851 Suicidal ideations; M54.5 Low back pain; G89.29 Other chronic pain; F17.200 Nicotine dependence, unspecified, uncomplicated; Z59.0 Homelessness; Z88.0 Allergy status to penicillin; Z79.899 Other long term (current) drug therapy
CPT/HCPCS: 36415; 80048; 80307; 80320; 81001; 85025; 99285; G0480

== ENCOUNTER 2019-10-14 09:12 | Emergency (ER) | payer MEDICAID, SELFPAY ==
[2019-10-14 09:15] VITALS: BP 144/88; PULSE 88; RESP 16; TEMP 36.4; O2SAT 100; BMI 21.4
--- NOTE | 2019-10-14 09:54 | ED.DCSUM_ITS ---
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 He told police he was going to jump off of a bridge. They went to get him after he locked himself in the bathroom at a gas station. Patient does have a history of bipolar disorder was recently admitted to [facility] a couple weeks ago. He has not attempted suicide today. He is currently homeless. He states he is having abdominal pain which is chronic for him. No vomiting or diarrhea he has had normal bowel movements he denies melena or hematochezia. No fevers. He states he has been taking his medication. Prior similar symptoms: Yes Recent Illness/Hospitalization: Yes <Akil Mortensen - Last Filed: 10/14/19 13:08> Chief Complaint: Suicidal Past Medical History <Kerrie Palomo - Last Filed: 10/14/19 10:21> Prior records reviewed: Yes Past Medical History: - - bipolar disorder Surgical History: - - colectomy Lives: Homeless Smoking Status: Current every day smoker <Akil Mortensen - Last Filed: 10/14/19 13:08> - Allergies and Home Meds Allergies/Adverse Reactions: Allergies Penicillins Allergy (Verified 10/14/19 09:25) Unknown Primary Care Physician: [facility] [Primary Care Provider] - Review of Systems All systems negative except as indicated General: Denies: Chills, Fever Eyes: Denies: Visual changes - bilaterally, Blurred Vision - bilaterally ENT: Denies: Rhinorrhea, Sore throat Cardiovascular: Denies: Chest pain, Palpitations Respiratory: Denies: Dyspnea, Cough Gastrointestinal: Reports: Abdominal pain. Denies: Nausea, Vomiting, Diarrhea, Constipation, Melena, Hematochezia Genitourinary: Denies: Dysuria, Hematuria, Frequency Musculoskeletal: Denies: Neck pain, Back pain Skin: Denies: Rash, Abscess, Abrasions Neurological: Denies: Headache, Weakness, Parasthesia Psych: Reports: Depression, Suicidal thoughts, Suicidal ideations Hematologic: Denies: Easy bruising, Easy bleeding <Akil Mortensen - Last Filed: 10/14/19 13:08> Physical Exam Vital Signs/Narrative: Vital Signs Temp Pulse Resp BP Pulse Ox 10/14/19 09:15 97.5 F L 88 16 144/88 H 100 <Kerrie Palomo - Last Filed: 10/14/19 10:21> Vital Signs/Narrative: Vital Signs Temp Pulse Resp BP Pulse Ox 10/14/19 09:15 97.5 F L 88 16 144/88 H 100 Inital Vital Signs reviewed: Yes General: Well nourished, Well developed, Unkempt Head: Normocephalic, Atraumatic Eyes: Perrl, EOMI ENT: Moist mucous membranes Neck: Supple, Nontender Cardiovascular: Regular rate, Regular rhythm Respiratory: No distress, CTA bilaterally Abdomen: Soft, Nontender, Nondistended, Normal bowel sounds, No masses Back: Nontender, Normal Inspection Extremities: Nontender, No Edema Skin: Normal color, No rash, No Trauma Neurological: Alert, Oriented x3 Psych: Normal Speech Pattern, Logical sequential goal directed thoughts, Depressed, Irritable, Suicidal thoughts <Akil Mortensen - Last Filed: 10/14/19 13:08> Diagnostic/Tx/Re-eval Patient was seen with Akil the PA agree with the history and physical as above the patient is awake and alert head neck chest abdomen remarkable moving all 4 extremities he is quite upset over the fact that the police force him to come to the hospital He indicates that he feels if the system is hassling him , Indicates he was at admitted to a mental health facility discharged with prescriptions follow-up instructions that he is unable to execute due to his homelessness he cannot buy the prescription he cannot make his appointments and he feels the system is not helping him and if the system continues to hassle him he might consider jumping off a bridge but that is a longstanding since he has had because of his social situation at this time undergo screening evaluation will ask mental health services to make an assessment <Kerrie Palomo - Last Filed: 10/14/19 10:21> Restraints applied: No Repeat interview and exam performed by/time: Akil Mortensen at 1300 Patient has been evaluated by crisis and they have decided to pink slip him and he will be transferred back to the [facility] facility. We did give the patient Ativan, GI cocktail, Pepcid and a dose of Imodium for his abdominal pain and agitation. He is resting comfortably. On repeat evaluation he remains resting comfortably and he does not need any further medications at this time. <Akil Mortensen - Last Filed: 10/14/19 13:08> ED Disposition <Kerrie Palomo - Last Filed: 10/14/19 10:21> <Akil Mortensen - Last Filed: 10/14/19 13:08> - Plan for ED Patient: Disposition: Psychiatric Hospital or Unit Diagnosis: Suicidal ideation, Bipolar disorder, Abdominal pain Referrals: [facility] [Primary Care Provider] -
--- NOTE | 2019-10-14 10:04 | NURSING ---
CALLED CRISIS FOR DR OVALLE
[2019-10-14] MEDS: LORazepam 1 MG Tablet 2 MG PO (10:33)
[2019-10-14] MEDS: Loperamide 2 MG Capsule PO (10:33)
[2019-10-14] MEDS: Mag Hydrox/Al Hydrox/Simeth 30 ML UDC PO (10:33)
[2019-10-14] MEDS: Famotidine 20 MG Tablet 40 MG PO (10:33)
[2019-10-14 10:47] LABS: Absolute Lymphocyte Count 0.82 X10^3/uL (0.83-4.51); Absolute Neutrophil Count 5.3 X10^3/uL (2.0-7.7); Basophil# 0.02 X10^3/uL; Basophil% 0.3 % (0-1); Eosinophil# 0.21 X10^3/uL; Eosinophils% 3.1 % (0-5); Hematocrit 40.9 % (40-54); Hemoglobin 13.5 g/dL (13.0-16.5); Lymphocyte # 0.82 X10^3/ul (4.0); Lymphocyte % 11.9 % (19-41); Mean Corpuscular Hgb 30.1 pg (27.0-32.0); Mean Corpuscular Volume 91.3 fL (80-94); Mean Platelet Vol. 8.9 fl (6.2-12.0); Monocyte# 0.47 X10^3/uL; Monocyte% 6.8 % (0-10); NRBC Flagged by Analyzer 0 % (0-5); Neutrophil # 5.33 X10^3/uL (2.7-7.7); Neutrophil % 77.6 % (47-70); Platelet Count 405 K/mm3 (150-450); RBC Distribution Width CV 13.3 % (11.6-14.6); RBC Distribution Width SD 44.4 fl (35.1-43.9); Red Blood Count 4.48 M/mm3 (4.6-6.2); White Blood Count 6.9 K/mm3 (4.4-11.0)
[2019-10-14 11:02] LABS: ALB/GLOB Ratio 1.1 RATIO (0.9-2.4); AST(SGOT) 13 U/L (15-37); Alanine Aminotransfer ALT/SGPT 28 U/L (16-61); Albumin, Serum 3.6 g/dL (3.2-5.0); Alkaline Phosphatase 65 U/L (45-117); Anion Gap 7 (5-15); BUN 7 mg/dL (7-18); BUN/Creat Ratio 9.6 RATIO (10-20); Calcium,Total 8.6 mg/dL (8.5-10.1); Chloride 108 mmol/L (98-107); Creatinine, Serum 0.73 mg/dL (0.70-1.30); EST Glomerular Filtration Rate 127 mL/min (>60); Est Glom Filt Rate - Afr Amer 153 mL/min (>60); Estimated Creatinine Clearance 121.58 ml/min; Globulin 3.2 g/dL (2.2-4.2); Glucose 79 mg/dL (74-106); Lipase 317 U/L (73-393); Potassium 3.5 mmol/L (3.5-5.1); Protein, Total 6.8 g/dL (6.4-8.2); Sodium Level 140 mmol/L (136-145)
[2019-10-14 11:04] LABS: Amphetamine Urine VISTA POSITIVE (<1000 ng/mL); Barbiturate Urine VISTA NEGATIVE (< 200 ng/mL); Benzodiazepine Urine VISTA NEGATIVE (< 200 ng/mL); Cocaine Urine VISTA NEGATIVE (< 300 ng/mL); Ecstacy Urine VISTA POSITIVE (< 500 ng/mL); Methadone Urine VISTA NEGATIVE (< 300 ng/mL); PCP Urine VISTA NEGATIVE (< 25 ng/mL); THC Urine VISTA NEGATIVE (< 50 ng/mL); Vista UDS pH Range 5
[2019-10-14 11:08] LABS: Alcohol, Blood (Medical)-Serum < 3.0 mg/dL
--- NOTE | 2019-10-14 11:16 | NURSING ---
CALLED CRISIS AGAIN
[2019-10-14 11:32] VITALS: BP 139/94; PULSE 83; O2SAT 98
[2019-10-14 14:17] VITALS: BP 139/94; PULSE 83; RESP 16; O2SAT 100
== END 2019-10-14 14:47 ==
PROVIDERS: Emergency Provider Physician Assistant Medical
DX: F31.9 Bipolar disorder, unspecified (principal); R45.851 Suicidal ideations; R10.9 Unspecified abdominal pain; G89.29 Other chronic pain; F17.200 Nicotine dependence, unspecified, uncomplicated; Z59.0 Homelessness; Z79.899 Other long term (current) drug therapy; Z88.0 Allergy status to penicillin
CPT/HCPCS: 80053; 80307; 80320; 83690; 85025; 99285; G0480

== ENCOUNTER 2022-08-19 17:13 | Emergency (ER) | payer MEDICARE, MEDICAID, SELFPAY ==
[2022-08-19 17:14] VITALS: BP 138/86; PULSE 105; RESP 16; TEMP 36.8; O2SAT 99; BMI 23.6
--- NOTE | 2022-08-19 17:28 | ED.VIS.LOWEX ---
HPI History of Present Illness Chief Complaint: Numb/Ting Narrative Narrative: 42-year-old male states that he has been homeless and living out in the cold until 3 days ago presents with 3 days of bilateral foot pain and swelling. While he states he also has past medical history of Crohn's and GERD, he asked for omeprazole because he has GERD and has not taken any of his medication. His main concern though, is that his bilateral feet, mainly his toes are swollen and discolored. He has come in from out of the cold, and states that he has been out in cold weather before, but has never had this experience. The ends of his feet are sore and painful, and swollen. He feels pressure sensation in them. PFSH PFS Home Medications omeprazole 20 mg capsule,delayed release 20 mg PO DAILY 06/14/19 [History Last Taken Unknown] Allergy/AdvReac Type Severity Reaction Status Date / Time cefazolin [From [facility]] Allergy Hives Verified 08/19/22 17:18 Penicillins Allergy Unknown Verified 08/19/22 17:18 Surgical History History of bowel resection Social History Smoking Status: Current every day smoker tobacco type: cigarettes ROS ROS ED ROS Narrative Constitutional: No fever, no chills. HEENT: No sore throat. No neck pain. No loss of vision. No rhinorrhea. Cardiovascular: No chest pain. No palpitations. No pedal edema. Respiratory: No cough, no shortness of breath. Abdominal: No abdominal pain. No nausea. No vomiting. Genitourinary: No dysuria. No hematuria. Musculoskeletal: No myalgias. Bilateral foot pain and swelling, mainly forefoot and toes right greater than left. Neurologic: No headaches. No dizziness. No lightheadedness. Skin: No rash. No change in color. Psychiatric: No depression. No anxiety. EXAM Physical Exam Narrative Exam Narrative: Afebrile. Vital signs noted. Nontoxic-appearing. HEENT: Normocephalic. Atraumatic. PERRL, EOMI. Neck soft and supple. No point tenderness or step off. Cardiovascular: Regular rate and rhythm. No murmurs, rubs, or gallops appreciated. Respiratory: No tachypnea. Lungs clear to auscultation bilaterally. Gastrointestinal: Abdomen soft, nontender, with normoactive bowel sounds. No rebound or guarding. Neurological: Awake. Alert. Nonfocal, nonlateralizing. Skin: No rash. Discolored toes, purpleish mainly on right foot. Musculoskeletal: No pedal edema. Full range of motion extremities. Inspection of bilateral feet shows abrasions to the soles of the bilateral forefoot. Toes are discolored mainly on the right foot and toes 2, 3, 4, and minimally and 5. Noted swelling of bilateral feet and toes mainly in the forefoot. Palpable dorsalis pedis pulse bilaterally. Exam consistent with trench foot. No purulent drainage noted. Const Vital Signs: 08/19/22 17:14 08/19/22 17:43 Temperature 98.2 F Temperature Source Temporal Pulse Rate 105 H Respiratory Rate 16 19 H Blood Pressure 138/86 H Blood Pressure Mean 103 Pulse Ox 99 Oxygen Delivery Method Room Air MDM MDM MDM Narrative Medical decision making narrative: Patient was given famotidine here. I do not feel that antibiotics are necessarily indicated. Patient states he has no way of getting any prescription medication regardless. I do feel that his exam is most consistent with trench foot from him wearing the same shoes and socks and then becoming wet over the past few weeks. He was told to keep his feet clean and dry. He will take [id number] medications as needed. Smoking cessation was discussed. He was told of the possibility of autoamputation of his toes, secondary infection, and the need for surgical debridement. I feel he can be discharged home with follow-up. [facility] was [facility]. Unfortunately, social work is unavailable in the emergency department here today. Disposition is discharged home in stable condition. Discharge Plan Triage Chief Complaint: Numb/Ting ED Provider: Branodn Jade Dx/Rx/DC Orders Clinical Impression: Trench feet, Gastroesophageal reflux disease Instructions: ED Pain, Acute, Uncertain Cause, ED Infec Skin Fungal Tinea Ch Prescriptions: No Action omeprazole 20 MG capsule 20 mg PO DAILY Primary Care Provider: [facility] Referrals: [facility] [Primary Care Provider] - 1 Day for another exam Activity Restrictions/Additional Instructions: Keep your feet and toes clean and dry. Follow-up with the [facility] as soon as possible to recheck the wounds on your feet. Disposition Disposition: Home, Self Care
[2022-08-19] MEDS: Famotidine 20 MG Tablet PO (17:29)
[2022-08-19 17:43] VITALS: RESP 19
[2022-08-19] MEDS: Acetaminophen 500 MG Tablet 1000 MG PO (17:45)
== END 2022-08-19 17:54 | disposition home or self-care (01) ==
LOC: ED 17:53
PROVIDERS: Emergency Provider Emergency Medicine; Visit Provider Emergency Medicine
DX: T69.021A Immersion foot, right foot, initial encounter (principal); T69.022A Immersion foot, left foot, initial encounter; X31.XXXA Exposure to excessive natural cold, initial encounter; K21.9 Gastro-esophageal reflux disease without esophagitis; Z59.00 Homelessness unspecified; F17.210 Nicotine dependence, cigarettes, uncomplicated
CPT/HCPCS: 99283

== ENCOUNTER 2022-08-25 13:31 | Emergency (ER) | payer MEDICARE, MEDICAID, SELFPAY ==
[2022-08-25 13:32] VITALS: BP 130/89; PULSE 109; RESP 18; TEMP 36.3; O2SAT 99; BMI 24.0
--- NOTE | 2022-08-25 15:50 | EX.ED.DYSGE1 ---
HPI History of Present Illness Chief Complaint: Lower Extremity Injury Informant: patient Narrative Narrative: Patient is a 42-year-old male with history of methamphetamine abuse and recent frostbite of his bilateral feet presenting with worsening bilateral foot pain. Initially his right foot was numb and the pain was worse in his left foot however he is having increased pain of his bilateral feet over the past few days. Is been taking ibuprofen with no relief. The frostbite occurred 1 week ago. He follows with the [facility]. He does not have any podiatry follow-up. He states that he is currently living at a recovery house and has never had any issues with opioid addiction. Is wanting something for pain. Has swelling and pain of his ankles and feet but no other complaints at this time. Denies any systemic symptoms. PFSH PFSH Home Medications omeprazole 20 mg capsule,delayed release 20 mg PO DAILY 06/14/19 [History Last Taken Unknown] gabapentin 800 mg tablet 800 mg PO TID #21 tabs 08/25/22 [Rx Last Taken Unknown] ibuprofen 600 mg tablet 600 mg PO Q6H PRN pain #30 tabs 08/25/22 [Rx Last Taken Unknown] Allergy/AdvReac Type Severity Reaction Status Date / Time cefazolin [From [facility]] Allergy Hives Verified 08/25/22 13:31 Penicillins Allergy Unknown Verified 08/25/22 13:31 Surgical History History of bowel resection Social History Smoking Status: Current every day smoker tobacco type: cigarettes ROS ROS ED Constitutional Constitutional ED: Denies chills or fever(s) Eyes Eyes: Denies change in vision ENT ENT ED: Denies rhinorrhea Cardiovascular Cardiovascular: Denies chest pain Respiratory/Chest Respiratory/Chest: Denies cough Gastrointestinal Gastrointestinal: Denies nausea or vomiting Musculoskeletal Musculoskeletal: Reports other Details: bilateral foot pain ; Denies arthralgias or myalgias Integumentary Reports rash Neurologic Neurologic: Reports paresthesias; Denies headache(s) or weakness Psychiatric Psychiatric: Denies anxiety or depression Hematologic/Lymphatic Hematologic/Lymphatic: Denies easy bleeding or easy bruising EXAM Physical Exam Const Vital Signs: 08/25/22 13:32 Temperature 97.4 F L Temperature Source Temporal Pulse Rate 109 H Respiratory Rate 18 Blood Pressure 130/89 H Blood Pressure Mean 102 Pulse Ox 99 Oxygen Delivery Method Room Air Positive well nourished and well developed General Appearance ED: well developed and NAD HEENT Reports moist mucous membranes Eyes PERRL Neck supple Chest Wall inspection of chest normal Resp normal respiratory effort and clear to auscultation bilaterally Cardio regular rate and regular rhythm Extremity Extremity Narrative: Patient has a mild tenderness to palpation of the bilateral feet most pronounced in the toes and the balls of the feet. Some diffuse swelling of the bilateral ankles and feet. 2+ DP pulses. Range of motion preserved. General Extremety ED: Yes edema General Extremity: edema Neuro oriented x3 Neuro Narrative: Subjective paresthesias of the bilateral feet Psych mental status grossly normal Skin Skin Narrative: Patient has scattered hemorrhagic blisters on his toes as well as the balls of his feet. Most pronounced on the right second toe. No significant bulla appreciated. This is consistent with frostbite that is healing. MDM MDM MDM Narrative Medical decision making narrative: Patient is evaluated for continued/worsening pain of his bilateral feet. He had developed frostbite of his feet a week ago. He is since staying in a recovery house is protected from the elements. He describes the pain more as a paresthesia. Given his history of drug abuse I am hesitant to give the patient opioids. I spoke with Dr. Townsend, podiatry, who recommended NSAIDs as well as gabapentin. He will follow-up with the patient outpatient. Patient is given IM Toradol and gabapentin in the ER. He does seem more comfortable. Is given a course of gabapentin. Is discharged home in improved and stable condition. Counseled on generalized wound care as well as keeping his feet clean and dry. He is agreeable with this. Discharge Plan Triage Chief Complaint: Lower Extremity Injury ED Provider: Mary Lou Diggs Dx/Rx/DC Orders Clinical Impression: Frostbite of feet, bilateral, Bilateral foot pain Instructions: ED Frostbite Prescriptions: New gabapentin 800 mg tablet 800 mg PO TID Qty: 21 0RF ibuprofen 600 mg tablet 600 mg PO Q6H PRN (Reason: pain) Qty: 30 0RF No Action omeprazole 20 MG capsule 20 mg PO DAILY Primary Care Provider: [facility] Referrals: Vickey Townsend DPM [Med Staff - Active Staff] - 2 Days for wound check [facility] [Primary Care Provider] - Disposition Disposition: Home, Self Care Discharge Date/Time: 08/25/22 16:34
[2022-08-25] MEDS: Ketorolac 15 MG/ML Vial IM (15:52)
[2022-08-25] MEDS: Gabapentin 800 MG Tablet PO (15:55)
== END 2022-08-25 16:34 | disposition home or self-care (01) ==
PROVIDERS: Emergency Provider Emergency Medicine; Visit Provider Emergency Medicine
DX: T33.821A Superficial frostbite of right foot, initial encounter (principal); M79.671 Pain in right foot; M79.672 Pain in left foot; F17.210 Nicotine dependence, cigarettes, uncomplicated; M25.571 Pain in right ankle and joints of right foot; T33.822A Superficial frostbite of left foot, initial encounter; M25.572 Pain in left ankle and joints of left foot
CPT/HCPCS: 96372; 99283

== ENCOUNTER 2022-08-27 16:17 | Emergency (ER) | payer MEDICARE, MEDICAID, SELFPAY ==
[2022-08-27 16:18] VITALS: BP 132/116; PULSE 115; RESP 16; TEMP 36.2; O2SAT 98; BMI 24.0
--- NOTE | 2022-08-27 16:48 | EDS_ITS ---
HPI History of Present Illness Chief Complaint: Lower Extremity Injury Detail of Chief Complaint: Bilateral foot pain Informant: patient Onset/Context/Timing Onset: Weeks Context: Gradual Onset Narrative Narrative: Patient presents with pain to the bilateral feet. He got frostbite about a week and a half ago. He was seen in the ER on August 25 secondary to pain. He was given Toradol and gabapentin in the emergency room. He states when he left the ER he was able to walk okay and felt better. Has been taking gabapentin and ibuprofen without improvement. He has not followed up with a [facility] or with Dr. Townsend who he was referred to. He presents back today stating the pain is getting worse and he is having difficulty walking. He is as ti for something stronger for pain. 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 PFSH PFSH Medical History no medical history no medical history Home Medications omeprazole 20 mg capsule,delayed release 20 mg PO DAILY 06/14/19 [History Last Taken Unknown] gabapentin 800 mg tablet 800 mg PO TID #21 tabs 08/25/22 [Rx Last Taken Unknown] ibuprofen 600 mg tablet 600 mg PO Q6H PRN pain #30 tabs 08/25/22 [Rx Last Taken Unknown] hydrocodone-acetaminophen 5-325mg 5mg-325mg 1 tab PO BID PRN pain 3 days #6 tabs 08/27/22 [Rx Last Taken Unknown] Allergy/AdvReac Type Severity Reaction Status Date / Time cefazolin [From [facility]] Allergy Hives Verified 08/27/22 16:17 Penicillins Allergy Unknown Verified 08/27/22 16:17 Surgical History History of bowel resection Social History Smoking Status: Current every day smoker tobacco type: cigarettes ROS ROS ED Constitutional Constitutional ED: Denies chills or fever(s) Eyes Eyes: Denies change in vision or discharge from eye(s) ENT ENT ED: Denies discharge from eye(s), rhinorrhea or sore throat Cardiovascular Cardiovascular: Denies chest pain or palpitations Respiratory/Chest Respiratory/Chest: Denies cough or dyspnea Gastrointestinal Gastrointestinal: Denies abdominal pain, nausea or vomiting Genitourinary Genitourinary ED: Denies dysuria Musculoskeletal Musculoskeletal: Reports extremity pain; Denies back pain Integumentary Denies Abrasions or rash Neurologic Neurologic: Denies headache(s) or weakness Allergic/Immunologic Allergic/Immunologic ED: Denies lip swelling or urticaria EXAM Physical Exam Const Vital Signs: 08/27/22 16:18 Temperature 97.2 F L Temperature Source Temporal Pulse Rate 115 H Respiratory Rate 16 Blood Pressure 132/116 H Blood Pressure Mean 121 Pulse Ox 98 Oxygen Delivery Method Room Air Positive well nourished and well developed General Appearance ED: well developed HEENT Reports normocephalic and head/scalp atraumatic Eyes PERRL and EOMs intact bilaterally Neck supple Chest Wall inspection of chest normal and palpation of chest normal Resp normal respiratory effort and clear to auscultation bilaterally Cardio regular rate and regular rhythm GI normal to inspection, nondistended, normoactive bowel sounds Palpation: soft Extremity Extremity Narrative: Dark skin discoloration to the plantar surface of his feet over the distal metatarsal region. No open wounds. Good cap refill distally. Neuro oriented x3 and no sensory deficits noted Sensorium / Orientation: alert Motor Exam: strength 5/5 throughout Psych mental status grossly normal MDM MDM MDM Narrative Medical decision making narrative: Patient was given IM Toradol and 1 tab of p.o. [place]. Treatment and Re-Evaluation Narrative: I performed an [place]AR[place] report. Patient signed any controlled substances other than the gabapentin in the last year. I told I will write him for 6 tabs of pain medication to get him through the weekend. Any further prescriptions need to come from either his primary care physician, [facility], or from podiatry, Dr. Townsend. Gauze pads were applied to the area of pain and Neville wraps are applied to both feet to give extra padding and support. At this time there is no evidence of infection. Discharge Plan Triage Chief Complaint: Lower Extremity Injury ED Provider: Tiera Carbajal Dx/Rx/DC Orders Clinical Impression: Frostbite of feet, bilateral, Bilateral foot pain Instructions: ED Frostbite Prescriptions: New hydrocodone-acetaminophen 5-325 mg tablet 1 tab PO BID PRN (Reason: pain) 3 Days Qty: 6 0RF No Action omeprazole 20 MG capsule 20 mg PO DAILY gabapentin 800 mg tablet 800 mg PO TID Qty: 21 0RF ibuprofen 600 mg tablet 600 mg PO Q6H PRN (Reason: pain) Qty: 30 0RF Primary Care Provider: [facility] Referrals: Vickey Townsend DPM [Med Staff - Active Staff] - As soon as possible [facility] [Primary Care Provider] - As soon as possible Disposition Disposition: Home, Self Care
[2022-08-27] MEDS: HYDROcodone Bitartrate/Apap 5/325 Tablet PO (17:01)
[2022-08-27] MEDS: Ketorolac 60 MG/2 ML Vial IM (17:02)
[2022-08-27 18:14] VITALS: BP 129/74; PULSE 62; RESP 15; O2SAT 98
== END 2022-08-27 18:15 | disposition home or self-care (01) ==
PROVIDERS: Emergency Provider Emergency Medicine; Visit Provider Emergency Medicine
DX: T33.821A Superficial frostbite of right foot, initial encounter (principal); T33.822A Superficial frostbite of left foot, initial encounter; F17.210 Nicotine dependence, cigarettes, uncomplicated; X58.XXXA Exposure to other specified factors, initial encounter
CPT/HCPCS: 96372; 99283

== ENCOUNTER 2022-09-07 13:02 | Outpatient (RCR) | payer MEDICARE, MEDICAID, SELFPAY ==
[2022-09-07 13:12] VITALS: BP 123/85; PULSE 113; RESP 16; TEMP 36.6; BMI 24.3
--- NOTE | 2022-09-07 16:02 | HP.PCM_ITS ---
History of Present Illness Date of Service: 09/07/22 Chief Complaint: Frostbite of feet, right foot pain History of Wound: Patient is 42 year old male who presents to the wound healing center after obtaining frostbite while sleeping outside. He was first seen in the ED on 08/25/22 for foot pain caused by the frostbite that occurred the week before the ED visit. He was given Toradol and Gabapentin and referred to [facility]. He is now living at a half way house, so he no longer is in the elements. He returned to the ED on 08/27/22 for bilateral foot pain. At that time he had not followed up with PCP or podiatry. He was seeking pain medication. He comes in today for further evaluation. He denies any history of illicit drug use, although it is noted in his chart he has a history of methadone abuse. He states his right foot is so painful that it is numb and tingly. He tells me he has followed up with podiatry and they have done nothing to help. He states he saw Dr. Marrero. He denies having any x-rays done of his right foot. He has been keeping his feet dry. He denies fever, chills, nausea and vomiting. Progress of Wound: There are no wounds on his right foot. There is hardened dark skin surrounding his 3rd, 4th and 5th toes and on the proximal plantar surface of his foot. PFSH Home Medications omeprazole 20 mg capsule,delayed release 20 mg PO DAILY 06/14/19 [History Last Taken Unknown] gabapentin 800 mg tablet 800 mg PO TID #21 tabs 08/25/22 [Rx Last Taken Unknown] ibuprofen 600 mg tablet 600 mg PO Q6H PRN pain #30 tabs 08/25/22 [Rx Last Taken Unknown] cyanocobalamin (vitamin B-12) 1,000 mcg/mL injection solution mcg subcut QWEEK 09/07/22 [History Last Taken Unknown] Allergy/AdvReac Type Severity Reaction Status Date / Time cefazolin [From [facility]] Allergy Hives Verified 08/27/22 16:17 Penicillins Allergy Hives Verified 09/07/22 13:28 Surgical History History of bowel resection Social History (Updated 09/15/22 @ 14:05 by Kary Webster NP, ANIMAL DOCTOR-C) Smoking Status: Current every day smoker tobacco type: cigarettes substance use type: former substance user Date of last use: denies use of illicit substances but has history of positive tox screens. ROS Constitutional Constitutional: Reports other Details: Patient is anxious and jittery ; Denies fever(s), frequent falls or headache(s) Eyes Eyes: Reports none ENT HEENT: Reports none Cardiovascular Cardiovascular: Denies chest pain or dyspnea Respiratory/Chest Respiratory/Chest: Denies cough or dyspnea Gastrointestinal Gastrointestinal: Reports none Musculoskeletal Musculoskeletal: Reports stiffness and tingling Integumentary Integumentary: Reports skin pain Neurologic Neurologic: Reports as per HPI, numbness and tingling Psychiatric Psychiatric: Reports anxiety and difficulty concentrating Endocrine Endocrinology: Reports none Vital Signs Vital Signs Vital Signs: 09/07/22 13:12 Temperature 97.8 F Temperature Source Temporal Pulse Rate 113 H Respiratory Rate 16 Blood Pressure 123/85 H Blood Pressure Mean 97 Blood Pressure Source Monitor Blood Pressure Position Sitting Blood Pressure Location Right Arm Oxygen Delivery Method Room Air Weight Weight: 160 lb Body Mass Index (BMI) 24.3 Physical Exam Const alert and oriented x3 General Appearance: anxious HEENT normocephalic Head and Scalp: atraumatic Eyes General Eye: normal appearance of both eyes Neck full ROM Resp normal respiratory effort, normal air movement and clear to auscultation bilaterally Effort and Inspection: able to speak in complete sentences Cardio regular rate and regular rhythm GI non-tender Back/Spine normal ROM Extremity Extremity Narrative: Bilateral foot pain with walking, especially on the right foot. Peripheral Pulses: Yes dorsalis pedis pulses present Skin Skin Narrative: Right foot pedal pulses palp. Skin on 3, 4,5 th digit is darkened, thick, and dry. Also has darkening on the plantar surface, just proximal to the toes. No ulcers present. The thickened skin is from his toes swelling after his initial frostbite and the skin has hardened and dried. Able to remove the dry, hard skin from his 3rd, 4th and 5th toe without difficulty. The skin underneath is intact, pink, his capillary refill is good. The dry hard skin was causing pressure and pain on his toes. Currently unable to remove any of the darkened skin on the plantar surface of foot. This should continue to be monitored. Neuro oriented x3 Psych cooperative Appearance: grossly normal and appropriate Activity / Motor Behavior: fidgetting Speech: normal speech Debridement Note Debridement Note No debridement was completed: No debridement was completed today Charges/Coding Visit Charges Office Visits / Consults: 14433 OV L4 Est Assessment/Plan Assessment/Plan (1) Pain in right foot: CODE(S): M79.671 - Pain in right foot (2) Frostbite of foot, right: CODE(S): T33.821A - Superficial frostbite of right foot, initial encounter; X31.XXXA - Exposure to excessive natural cold, initial encounter (3) Frostbite of feet, bilateral: CODE(S): T33.821A - Superficial frostbite of right foot, initial encounter; T33.822A - Superficial frostbite of left foot, initial encounter PLAN: Plan Patient evaluated at the wound healing center. No active wounds. Removed hardened skin on right toes #3, 4,5 without difficulty. Skin under is pink and intact with good capillary refill. Hopefully this will help make walking easier. I will order an xray of his right foot since he is complaining of so much pain and is walking with a limp. Instructed him to follow up with Dr. Marrero as scheduled on 09/21/22. There is no need for him to follow up at the wound center since he has no open wounds and no edema. Greater than 35 minutes spent with patient with evaluating, treating, educating and plan of care and with review of records and documenting.
== END 2022-09-07 15:32 | disposition home or self-care (01) ==
LOC: WC 13:02
PROVIDERS: Visit Provider Nurse Practitioner Family
DX: T33.821A Superficial frostbite of right foot, initial encounter (principal); T33.822A Superficial frostbite of left foot, initial encounter; X31.XXXA Exposure to excessive natural cold, initial encounter; M79.671 Pain in right foot; F17.210 Nicotine dependence, cigarettes, uncomplicated; Z79.899 Other long term (current) drug therapy
CPT/HCPCS: 99213; G0463

== ENCOUNTER 2025-04-29 20:27 | Emergency (ER) | payer MEDICARE, MEDICAID, SELFPAY ==
[2025-04-29 20:28] VITALS: BP 124/79; PULSE 102; RESP 22; TEMP 36.6; O2SAT 100; BMI 23.1
[2025-04-29 21:20] LABS: Hematocrit 38.5 % (40-54); Hemoglobin 13.1 g/dL (13.0-16.5); Immature Granulocytes Count 0.010 X10^3/uL (0.0-0.0); Mean Corp Hgb Conc 34.0 g/dL (32-36); Mean Corpuscular Volume 89.1 fL (80-94); Mean Platelet Vol. 8.7 fl (6.2-12.0); NRBC Flagged by Analyzer 0 % (0-5); Platelet Count 393 K/mm3 (150-450); RBC Distribution Width CV 12.5 % (11.6-14.6); RBC Distribution Width SD 41.1 fl (35.1-43.9); Red Blood Count 4.32 M/mm3 (4.6-6.2); White Blood Count 5.6 K/mm3 (4.4-11.0)
[2025-04-29 21:38] LABS: Anion Gap 12 (5-15); BUN 7 mg/dL (4-19); BUN/Creat Ratio 8.6 RATIO (10-20); Calcium,Total 9.0 mg/dL (7.6-11.0); Carbon Dioxide 23.5 mmol/L (21.0-32.0); Chloride 105 mmol/L (98-108); Estimated Creatinine Clearance 111.63 ml/min (50-250); Glucose 130 mg/dL (70-99); Potassium 3.4 mmol/L (3.3-5.1)
--- NOTE | 2025-04-29 22:00 | EX.ED.DYSGE1 ---
HPI History of Present Illness Chief Complaint: General Illness Detail of Chief Complaint: Triage note was reviewed. Patient demanded Informant: patient Onset/Context/Timing Onset: - (Unable to determine. Patient told me to do my fucking job . He informed me that I am asking too many questions.) Context: - (Unable to determine) Timing: - ( unable to determine) Quality: I do not feel well. I have not felt well since I was born Location: Unable to determine Current Severity: Apparently his entire life Worsened by: I hate this town Relieved by: Nothing Associated Symptoms Associated Symptoms: Not able to determine Narrative Narrative: Patient is a 45-year-old male. I was informed by the security support analyst that he has a history of amphetamine use and is homeless. Triage document he was in the waiting area for over 3 hours. He then states he needed to be seen. When I went in to speak with him he told me he needs his adrenal levels checked. I asked if he had a history of adrenal insufficiency or was recently on steroids and he told me to do my job. I informed him that I need to ask him questions to determine what tests are appropriate. His response was do your fucking job . Patient states he has been depressed all his life. Patient has suicidal thoughts all his life. He has no specific plan. He denies headache, visual, ocular auditory symptoms. He denies cardiac respiratory symptoms. His only complaint is I do not feel well and I want checked out. Prior similar symptoms: No Recent Illness/Hospitalization: No [facility] Home Medications ?Medication ?Instructions ?Recorded ?Last Taken ?Type omeprazole 20 mg capsule,delayed 20 mg PO DAILY 06/14/19 Unknown History release cyanocobalamin (vitamin B-12) mcg subcut QWEEK 09/07/22 Unknown History 1,000 mcg/mL injection solution Allergy/AdvReac Type Severity Reaction Status Date / Time cefazolin (From [facility]) Allergy Hives Verified 08/27/22 16:17 Penicillins Allergy Hives Verified 09/07/22 13:28 Family History no significant family his Surgical History (Reviewed 09/15/22 @ 13:59 by Kary Webster [employer], [employer]) History of bowel resection Social History (Updated 04/29/25 @ 22:[address] Rian Strange MD) housing: homeless Smoking Status: Current every day smoker tobacco type: cigarettes and e-cigarettes substance use type: former substance user Date of last use: denies use of illicit substances but has history of positive tox screens. and amphetamines ROS ROS ED Constitutional Constitutional ED: Denies chills, fever(s), subjective or sweats Eyes Eyes: Denies blurry vision or change in vision ENT ENT ED: Denies ear pain, rhinorrhea or sore throat Cardiovascular Cardiovascular: Denies chest pain or palpitations Respiratory/Chest Respiratory/Chest: Denies cough, dyspnea or dyspnea on exertion Gastrointestinal Gastrointestinal: Denies abdominal pain, diarrhea, nausea or vomiting Musculoskeletal Musculoskeletal: Denies arthralgias or myalgias Integumentary Denies rash Neurologic Neurologic: Denies paresthesias or weakness Psychiatric Psychiatric: Reports depression and suicidal thoughts; Denies suicidal ideation Endocrine Endocrinology: Denies cold intolerance or heat intolerance Hematologic/Lymphatic Hematologic/Lymphatic: Reports systems reviewed and no addt'l complaints, except as documented EXAM Physical Exam Const Vital Signs: 04/29/25 20:28 04/29/25 21:45 Temperature 97.8 F Temperature Source Temporal Pulse Rate 102 H Respiratory Rate 22 H Respiratory Effort Normal Non-Labored Blood Pressure 124/79 H Blood Pressure Mean 94 Pulse Ox 100 Oxygen Delivery Method Room Air Positive well nourished and well developed Constitutional Narrative: Not well-groomed. Vital signs reveal tachycardia and tachypnea. Is not hypoxic nor is he febrile. General Appearance ED: well developed; Negative for pallor HEENT Reports moist mucous membranes HEENT Narrative: Head is atraumatic no cephalic. Ears normal. Nares patent. Eyes PERRL and EOMs intact bilaterally Resp normal respiratory effort Cardio regular rate and regular rhythm Back/Spine no CVA tenderness Extremity normal to inspection General Extremety ED: Negative for edema or tenderness General Extremity: Negative for edema Neuro oriented x3 and CN's II-XII intact bilaterally Sensorium / Orientation: alert Motor Exam: strength 5/5 throughout Psych Psych Narrative: Inappropriate language. Attitude: agitated Skin no rashes or lesions noted, no wounds and skin turgor normal General Skin Exam: Negative for jaundice or pallor MDM MDM MDM Narrative Medical decision making narrative: Patient was informed I need to ask him questions. He said I am done answering her questions . History & Record Review Additional record(s) reviewed:: Prior outpatient record (Seen by plastics 2021 for frostbite of his feet.) and Prior ED visit (For follow Lul by Dr. Tiera Fall August 2022.) Lab Data Attestation: I reviewed the patient's lab results. Lab results narrative: CBC is unremarkable. MCV is normal. Electrolyte panel is remarkable for slight elevation in glucose of 130 with a normal CO2 anion gap. Labs: Laboratory Results - last 24 hr 04/29/25 21:14 WBC 5.6 RBC 4.32 L Hgb 13.1 Hct 38.5 L MCV 89.1 MCH 30.3 MCHC 34.0 RDW Std Deviation 41.1 RDW Coeff of Faraz 12.5 Plt Count 393 MPV 8.7 Immature Gran % (Auto) 0.200 Neut % (Auto) 58.3 Lymph % (Auto) 27.3 [place] % (Auto) 10.6 H Eos % (Auto) 3.1 Baso % (Auto) 0.5 Absolute Neuts (auto) 3.2 Absolute Lymphs (auto) 1.52 Nucleated RBC % 0 Sodium 141 Potassium 3.4 Chloride 105 Carbon Dioxide 23.5 Anion Gap 12 BUN 7 Creatinine 0.80 Estim Creat Clear Calc 111.63 Est GFR (MDRD) Non-Af 111 BUN/Creatinine Ratio 8.6 L Glucose 130 H Calcium 9.0 Treatment and Re-Evaluation :: Since there is no evidence of anemia. There is no kidney disease electrolyte abnormality patient will be discharged to home. Discharge Plan Triage Chief Complaint: General Illness ED Provider: Rian Strange Dx/Rx/DC Orders Clinical Impression: Fatigue, Pernicious anemia, Homeless, History of illicit drug use, Nondiabetic hyperglycemia, Encounter for medical screening examination Instructions: ED Weakness Uncertain Cause Prescriptions: No Action omeprazole 20 MG capsule 20 mg PO DAILY cyanocobalamin (vitamin B-12) 1,000 mcg/mL Solution SUBCUT QWEEK Primary Care Provider: Care Physician,No Primary Referrals: [facility] [Provider Group] - 3-5 Days Care Physician,No Primary [Primary Care Provider] - Print Language: Congolese Disposition Disposition: Home, Self Care
[2025-04-29 22:21] VITALS: BP 134/78; PULSE 98; RESP 18; TEMP 36.6; O2SAT 100
--- NOTE | 2025-04-29 22:22 | ED.RN ---
Security called to help escort Pt out of ED. Pt refusing to leave when discharged. Pt swearing at staff. Escorted out of ED.
== END 2025-04-29 22:25 | disposition home or self-care (01) ==
PROVIDERS: Emergency Provider Emergency Medicine; Visit Provider Emergency Medicine
DX: D51.0 Vitamin B12 deficiency anemia due to intrinsic factor deficiency (principal); R53.83 Other fatigue; F17.210 Nicotine dependence, cigarettes, uncomplicated; Z59.00 Homelessness unspecified; R45.851 Suicidal ideations; R73.9 Hyperglycemia, unspecified; F32.A Depression, unspecified; F17.290 Nicotine dependence, other tobacco product, uncomplicated; Z87.898 Personal history of other specified conditions
CPT/HCPCS: 80048; 85025; 99282

== ENCOUNTER 2025-04-30 20:06 | Emergency (ER) | payer MEDICARE, MEDICAID, SELFPAY ==
[2025-04-30 20:07] VITALS: BP 115/87; PULSE 100; RESP 18; TEMP 36.7; O2SAT 98; BMI 22.6
--- NOTE | 2025-04-30 20:27 | EX.ED.DYSGE1 ---
HPI History of Present Illness Chief Complaint: Suicidal Narrative Narrative: Chief complaint and HPI: Suicidal ideation. 45-year-old male with past medical history of illicit drug abuse, pernicious anemia, homelessness presents for evaluation of suicidal ideation. Patient states that he needs to see a psychiatrist so that he does not kill himself. Patient states he has a previous history of schizophrenia and depression although he states he does not believe he is schizophrenic. He endorses suicidal ideation but does not have a plan. He states that if he does not get out of [place] he will kill himself as this is the only way to get out of this town. He states that the police are stealing all of his money and they are putting voices in his head. States he is not currently taking any mental health medications. He denies any fever, chills, shortness of breath, chest pain abdominal pain, nausea, vomiting. Review of systems: See HPI Medications: As listed on the chart Allergies: As listed on the chart PFSH: Per chart Vital signs: As listed on the chart. Reviewed. Physical exam: Gen: A&O x3, NAD Head: Normocephalic, atraumatic Eyes: No sclera icterus, conjunctiva clear, PERRL, EOMI ENT: Moist mucous membranes Neck: Trachea midline, No JVD CV: RRR, no murmurs, no peripheral edema Resp: Lungs CTA BL, no w/r/c GI: Abd soft, non-distended, non-tender, no r/r/g Musc: Full ROM, no deformity Skin: Warm, dry Neuro: Alert, oriented, grossly intact, sensation intact Psych: Cooperative, Disheveled PFS PFS Home Medications ?Medication ?Instructions ?Recorded ?Last Taken ?Type omeprazole 20 mg capsule,delayed 20 mg PO DAILY 06/14/19 Unknown History release cyanocobalamin (vitamin B-12) mcg subcut QWEEK 09/07/22 Unknown History 1,000 mcg/mL injection solution Allergy/AdvReac Type Severity Reaction Status Date / Time cefazolin (From [facility]) Allergy Hives Verified 04/30/25 20:07 Penicillins Allergy Hives Verified 04/30/25 20:07 Surgical History History of bowel resection Social History housing: homeless Smoking Status: Current every day smoker tobacco type: cigarettes and e-cigarettes substance use type: former substance user Date of last use: denies use of illicit substances but has history of positive tox screens. and amphetamines EXAM Physical Exam Const Vital Signs: 04/30/25 20:07 04/30/25 21:07 Temperature 98.1 F Temperature Source Temporal Pulse Rate 100 78 Respiratory Rate 18 Blood Pressure 115/87 H 130/87 H Blood Pressure Mean 96 101 Pulse Ox 98 100 Oxygen Delivery Method Room Air MDM MDM MDM Narrative Medical decision making narrative: 45-year-old male with past medical history of illicit drug abuse, pernicious anemia, homelessness presents for evaluation of suicidal ideation. Patient states that he needs to see a psychiatrist so that he does not kill himself. Patient states he has a previous history of schizophrenia and depression although he states he does not believe he is schizophrenic. He endorses suicidal ideation but does not have a plan. He states that if he does not get out of [place] he will kill himself as this is the only way to get out of this town. He states that the police are stealing all of his money and they are putting voices in his head. Of note, patient was seen in our emergency department yesterday by one of my partners. He wanted his adrenal levels checked. He endorsed chronic depression and chronic suicidal ideation. He denied any visual or auditory symptoms. He had basic lab work that was unremarkable and discharged home. Differential diagnosis includes but is not limited to schizophrenia, paranoia, electrolyte abnormality, substance abuse. Patient pink slipped due to his suicidal ideation. Patient benefit from inpatient psychiatric placement and crisis consult. Mental health laboratory workup ordered. CBC without leukocytosis or anemia. CMP unremarkable. Urine drug screen positive for amphetamines. Alcohol level unremarkable. Patient medically cleared for inpatient psychiatric facility. Crisis to evaluate patient. Impression: 1. Suicidal ideation 2. Paranoia 3. Methamphetamine abuse Lab Data Labs: Laboratory Results - last 24 hr 04/30/25 20:16 WBC 6.4 RBC 4.48 L Hgb 13.3 Hct 41.2 MCV 92.0 MCH 29.7 MCHC 32.3 RDW Std Deviation 41.9 RDW Coeff of Faraz 12.6 Plt Count 445 MPV 8.8 Immature Gran % (Auto) 0.500 Neut % (Auto) 64.4 Lymph % (Auto) 24.0 [place] % (Auto) 8.9 Eos % (Auto) 1.6 Baso % (Auto) 0.6 Absolute Neuts (auto) 4.2 Absolute Lymphs (auto) 1.54 Nucleated RBC % 0 Sodium 142 Potassium 3.7 Chloride 105 Carbon Dioxide 25.8 Anion Gap 11 BUN 6 Creatinine 0.92 Estim Creat Clear Calc 98.61 Est GFR (MDRD) Non-Af 105 BUN/Creatinine Ratio 6.5 L Glucose 86 Calcium 8.8 Total Bilirubin 0.37 AST 19 ALT 21 Alkaline Phosphatase 68 Total Protein 6.3 Albumin 3.9 Globulin 2.4 Albumin/Globulin Ratio 1.6 Urine Opiates Screen NEGATIVE U Buprenorphine Qual NEGATIVE Ur Oxycodone Screen NEGATIVE Urine Methadone Screen NEGATIVE Urine Fentanyl Screen NEGATIVE Ur Barbiturates Screen NEGATIVE Ur Phencyclidine Scrn NEGATIVE Ur Amphetamines Screen PRESUMPTIVE POSITIVE U Benzodiazepines Scrn NEGATIVE Urine Cocaine Screen NEGATIVE U Cannabinoids Screen NEGATIVE Ethyl Alcohol < 10.1 Discharge Plan Triage Chief Complaint: Suicidal ED Provider: Yuniel Morris Dx/Rx/DC Orders Prescriptions: No Action omeprazole 20 MG capsule 20 mg PO DAILY cyanocobalamin (vitamin B-12) 1,000 mcg/mL Solution SUBCUT QWEEK Primary Care Provider: Care Physician,No Primary Referrals: Care Physician,No Primary [Primary Care Provider] - Print Language: [place]ican
[2025-04-30 20:34] LABS: Hematocrit 41.2 % (40-54); Hemoglobin 13.3 g/dL (13.0-16.5); Immature Granulocytes Count 0.030 X10^3/uL (0.0-0.0); Mean Corp Hgb Conc 32.3 g/dL (32-36); Mean Corpuscular Volume 92.0 fL (80-94); Mean Platelet Vol. 8.8 fl (6.2-12.0); NRBC Flagged by Analyzer 0 % (0-5); Platelet Count 445 K/mm3 (150-450); RBC Distribution Width CV 12.6 % (11.6-14.6); RBC Distribution Width SD 41.9 fl (35.1-43.9); Red Blood Count 4.48 M/mm3 (4.6-6.2); White Blood Count 6.4 K/mm3 (4.4-11.0)
--- OUTSIDE RECORDS SUMMARY | 2025-04-30 20:43 | XMS RPT_ITS | CCD ---
Author Organization [facility] Care Team Providers Care Sider Name Role Phone Unavailable Unavailable Unavailable KASSAWAT, MUHANNAD Unavailable Unavailable KASSAWAT, MUHANNAD Unavailable Unavailable ALICE STEPHENSON Unavailable Unavailable Tourlas, Corby Unavailable Unavailabl e Tourlas, Corby Unavailable Unavailabl e Tourlas, Corby Unavailable Unavailabl e Tourlas, Corby Unavailable Unavailabl e Tourlas, Corby Unavailable Unavailabl e Tourlas, Corby Unavailable Unavailabl e Tourlas, Corby Unavailable Unavailabl e Tourlas, Corby Unavailable Unavailabl e Tourlas, Corby Unavailable Unavailabl e Tourlas, Corby Unavailable Unavailabl e Tourlas, Corby Unavailable Unavailabl e Tourlas, Corby Unavailable Unavailabl e Tourlas, Corby Unavailable Unavailabl e Tourlas, Corby Unavailable Unavailabl e Tourlas, Corby Unavailable Unavailabl e Tourlas, Corby Unavailable Unavailabl e Ivanauskas, Saulius Unavailable Unavailable Ivanauskas, Saulius Unavailable Unavailable NAGEEB, MERLIN Unavailable Unavailable NAGEEB, MERLIN Unavailable Unavailable ELSA, PALANI K Unavailable Unavailable ELSA, PALANI K Unavailable Unavailable TOURLAS, CORBY Unavailable Unavailabl e KATIRJI, BASHAR Unavailable Unavailable KATIRJI, BASHAR Unavailable Unavailable SAWLANI, CALE Unavailable Unavailable Tourlas, Corby Unavailable Unavailabl e Eng, Alejandra A Unavailable Unavailable Eng, Alejandra A Unavailable Unavailable Lehman, Raphael E Unavailable Unavailable Lehman, Raphael E Unavailable Unavailable LEHMAN, RAPHAEL JOSEPH Unavailable Unavailab ALONDRA Antonio AN Unavailable Unavailab le TOURLAS, CORBY Unavailable Unavailabl e Unavailable Primary Care Provider Unavailabl e [facility]man, [facility] Unavailable Mary Lou Diggs Attending Unavailable Tiera Carbajal Attending Unavailable Startzman, [facility] Unavailable Startzman, [facility] Unavailable Brandon Jade Attending Unavailable Darin, Kary E Consulting Unavailable Darin, Kary E Attending Unavailable Darin, Kary E Referring Unavailable Startzman, [facility] Unavailable Darin, Kary E Attending Unavailable Startzman, [facility] Unavailable Leon Pineda MD Primary Care Provider [employer] ROLL OUT MANAGER.NUMERICAL CONTROL MACHINE TOOL OPERATORShavon Unavailable [place] ROLL OUT MANAGER.JACQUELINE, Wilma Unavailable Leon Pineda MD Primary Care Provider Dr. Rian Strange MD Emergency Provider [phone] Care Physician, No Primary Primary Care Provider Unavailable Allergies Allergy Classification Reported Allergen(s) Allergy Type Date of Onset Reaction(s) Facility (9 sources) ceFAZolin; Translations: [CEFAZOLIN] Propensity to adverse reactions to drug 7 Rash, Hives [facility] Work Phone: (7 sources) Penicillins; Translations: [penicillins] Propensity to adverse reactions to drug 2 AOF, Unknown, Hives [facility] Work Phone: (1 source) ceFAZolin; Translations: [Ancef] Drug Allergy AOF [facility] Repository (1 source) No Known Allergies; Translations: [No Known Allergies] Propensity to adverse reactions to drug (disorder) [facility] Repository (2 sources) Penicillins Drug Allergy 7 Rash, Hives, Other: See Comments [facility] (1 source) ceFAZolin Drug Allergy 2 [facility] Repository (1 source) Penicillins Drug allergy (disorder) 2 [facility] Repository (1 source) Penicillins Drug Allergy 7 Rash, Hives, Other: See Comments [facility] Medications Current Medications Medication Drug Class(es) Dates Sig (Normalized) Sig (Original) acetaminophen 325 mg / HYDROcodone bitartrate 5 mg oral tablet (1 source) Opioid Agonist Start: 08-27-2022 take 1 tablet by mouth twice daily Hydrocodone-Acetamino phen Active 1 TABLET PO TWICE A DAY 6 3 August 27, 2022 baclofen 20 mg oral tablet (1 source) gamma-Aminobutyric Acid-ergic Agonist Start: 03-14-2017 baclofen (LIORESAL) 20 MG tablet loperamide hydrochloride 2 mg oral tablet (3 sources) Opioid Agonist Start: 07-31-2019 Loperamide HCl (IMODIUM) 2 mg tab Indications: Crohn's disease of small and large intestines with complication (HCC) Take 1 tablet by mouth as needed. 30 tablet 2 07/31/2019 Active Comment on above: Take 1 tablet by lorelei as needed. naproxen 500 mg oral tablet (3 sources) Nonsteroidal Anti-inflammatory Drug Start: 09-08-2022 take 1 tablet by mouth every twelve hours as needed naproxen (NAPROSYN) 500 mg tablet Take 1 tablet by mouth twice daily as needed for pain. Take with food. 60 tablet 09/08/2022 Active Comment on above: Take 1 tablet by lorelei twice daily as needed for pain. Take with food. omeprazole 20 mg delayed release oral capsule (10 sources) Proton Pump Inhibitor Start: 07-31-2019 take 1 tablet by mouth once daily Omeprazole 20 mg TbEC Indications: Gastroesophageal reflux disease without esophagitis Take 20 mg by mouth once daily. 90 tablet 07/31/2019 Active Start: 06-14-2019 take 1 capsule by [facility] once daily Omeprazole 20 MG capsule Active 20 mg PO DAILY June 14, 2019 12:00am Comment on above: Take 20 mg by mouth once daily. Take 1 capsule by mo [facility] once daily. Take prior to meal. vitamin b12 1 mg/ml injectable solution (5 sources) Vitamin B12 Start: 09-07-2022 Cyanocobalamin (Vitamin B-12) 1,000 mcg/mL Solution Active ug SC EVERY WEEK September 07, 2022 1:00am Start: 09-07-2022 Cyanocobalamin (Vitamin B-12) Active MCG SC EVERY WEEK September 07, 2022 12:00am Start: 01-18-2020 inject 1 mL by intra muscular injection every month cyanocobalamin (VITAMIN B-12) 1,000 mcg/mL Indications: Crohn's disease of small and large intestines with complication (HCC) , B12 deficiency Inject 1 mL intramuscularly once every month. 1 mL 5 01/18/2020 Active Comment on above: Inject 1 mL intramus cularly once every month. Completed/Discontinued Medications Medication Drug Class(es) Dates Sig (Normalized) Sig (Original) cholestyramine resin 4000 mg powder for oral suspension (1 source) Bile Acid Sequestrant Start: 07-17-2019 End: 09-08-2022 take 1 dose by mouth twice daily at mealtime cholestyramine (QUESTRAN) 4 gram packet Take 1 Packet by mouth twice daily with meals. 60 Packet 5 07/17/2019 09/08/2022 Discontinued Comment on above: Take 1 Packet by [facility] twice daily with meals. gabapentin 800 mg oral tablet (10 sources) Anti-epileptic Agent Start: 08-25-2022 End: 04-29-2025 take 1 tablet by mouth three times daily Gabapentin 800 mg tablet Discontinued 800 mg PO THREE TIMES A DAY 21 0 August 25, 2022 1:00am April 29, 2025 8:48pm Start: 10-08-2019 take 2 tablets by [facility] three times daily gabapentin (NEURONTIN) 600 mg tablet Indications: Crohn's disease of small and large intestines with complication (HCC) , Fibromyalgia , Chronic fatigue syndrome with fibromyalgia Take 2 tablets by mouth three times daily for 90 days. 180 tablet 2 10/08/2019 Active Start: 03-24-2017 gabapentin (NE URONTIN) 600 MG tablet 2 tablets 3 (three) times a day. 03/24/2017 Active Comment on above: Take 2 tablets by [facility] three times daily for 90 days. Take 800 mg by mouth three times daily. ibuprofen 600 mg oral tablet (4 sources) Nonsteroidal Anti-inflammatory Drug Start: 2 End: 2 take 1 tablet by mouth three times daily as needed for pain, then take 1 tablet by mouth every twelve hours as needed for pain ibuprofen (MOTRIN) 600 mg tablet Take 1 tablet by mouth three times daily. TAKE ONE TABLET EVERY 12 HOURS NEEDED FOR PAIN 0 08/31/2022 09/08/2022 Discontinued Start: 08-25-2022 End: 04-29-2025 take 1 tablet by mouth every six hours as needed for pain Ibuprofen 600 mg tablet Discontinued 600 mg PO EVERY 6 HOURS as needed for pain 30 0 August 25, 2022 1:00am April 29, 2025 8:48pm Comment on above: Take 1 tablet by lorelei th three times daily. TAKE ONE TABLET EVERY 12 HOURS NEEDED FOR PAIN Problems Active Problems Problem Classification Problem Date Documented Date Episodic/Chronic Abdominal pain (4 sources) Abdominal pain; Translations: [Unspecified abdominal pain] 10-15-2019 Episodic Administrative/socia l admission (1 source) Homeless; Translations: [Homeless] 04-29-2025 Episodic Anxiety disorders (4 sources) Generalized anxiety disorder; Translations: [Generalized anxiety disorder] Onset: 09-26-1998 06-28-2019 Chronic Conditions associated with dizziness or vertigo (1 source) Conditions associated with dizziness or vertigo Onset: 04-01-2017 Deficiency and other anemia (1 source) Pernicious anemia; Translations: [Vitamin B12 deficiency anemia due to intrinsic factor deficiency] 04-29-2025 Episodic Diabetes mellitus without complication (1 source) Non-diabetic hyperglycemia; Translations: [Hyperglycemia, unspecified] 04-29-2025 Episodic Diverticulosis and diverticulitis (3 sources) Diverticulitis; Translations: [Diverticulitis of intestine, part unspecified, without perforation or abscess without bleeding] 06-28-2019 Chronic E Codes: Natural/environment (1 source) Exposure to excessive natural cold, initial encounter; Translations: [Exposure to excessive natural cold, initial encounter] Onset: 10-09-2022 Episodic Esophageal disorders (7 sources) Gastroesophageal reflux disease; Translations: [Gastro-esophageal reflux disease without esophagitis] 06-28-2019 Chronic Malaise and fatigue (3 sources) Chronic fatigue syndrome; Translations: [Chronic fatigue syndrome with fibromyalgia] Onset: 09-26-1998 06-28-2019 Chronic Malaise and fatigue (2 sources) Fatigue; Translations: [Other fatigue] Onset: 03-31-2017 03-31-2017 Episodic Mood disorders (8 sources) Bipolar disorder; Translations: [Bipolar disorder, unspecified] 10-15-2019 Chronic Other connective tissue disease (1 source) Fibromyalgia; Translations: [Fibromyalgia] Onset: 02-21-2018 Episodic Other connective tissue disease (4 sources) Foot pain; Translations: [Pain in right foot] 09-02-2022 Episodic Other connective tissue disease (1 source) Pain in right foot; Translations: [Pain in right foot] Onset: 10-09-2022 Episodic Other connective tissue disease (1 source) Pain in left foot; Translations: [Pain in left foot] Onset: 08-30-2022 Episodic Other injuries and conditions due to external causes (8 sources) Immersion foot; Translations: [Immersion foot, unspecified foot, initial encounter] 10-01-2019 Episodic Other injuries and conditions due to external causes (3 sources) Frostbite of foot; Translations: [Superficial frostbite of right foot, initial encounter] 09-16-2022 Episodic Other injuries and conditions due to external causes (2 sources) Superficial frostbite of right foot, initial encounter; Translations: [Superficial frostbite of right foot, initial encounter] Onset: 10-09-2022 Episodic Other injuries and conditions due to external causes (1 source) Superficial frostbite of left foot, initial encounter; Translations: [Superficial frostbite of left foot, initial encounter] Onset: 10-09-2022 Episodic Other injuries and conditions due to external causes (1 source) Frostbite of right foot; Translations: [Superficial frostbite of right foot, initial encounter] 09-16-2022 Episodic Other nervous system disorders (1 source) Anesthesia of skin; Translations: [Anesthesia of skin] Onset: 08-24-2022 Episodic Other screening for suspected conditions (not mental disorders or infectious disease) (1 source) Patient encounter status; Translations: [Encounter for screening, unspecified] 04-29-2025 Episodic Regional enteritis and ulcerative colitis (6 sources) Crohn's disease; Translations: [Crohn's disease, unspecified, with unspecified complications] Onset: 03-31-2017 03-31-2017 Chronic Schizophrenia and other psychotic disorders (6 sources) Unspecified psychosis not due to a substance or known physiological condition; Translations: [Delusional disorders] Onset: 01-31-2018 09-13-2019 Chronic Substance-related disorders (5 sources) Other stimulant abuse, uncomplicated; Translations: [History of methamphetamine abuse] Onset: 02-21-2018 09-08-2022 Chronic Suicide and intentional self-inflicted injury (4 sources) Suicidal thoughts; Translations: [Suicidal ideations] 10-15-2019 Episodic Superficial injury; contusion (4 sources) Corneal abrasion; Translations: [Injury of conjunctiva and corneal abrasion without foreign body, unspecified eye, initial encounter] 07-10-2019 Episodic Unclassified (1 source) Unknown / UNK(Unknown) Onset: 06-09-2017 Unclassified (1 source) Polyneuropathy, unspecified / G62.9(ICD-10) Onset: 04-01-2017 Past or Other Problems Problem Classification Problem Date Documented Da te Episodic/Chronic Medical examination/evaluation (2 sources) Encounter for general adult medical examination without abnormal findings; Translations: [Encounter for general adult medical examination without abnormal findings] Onset: 04-04-2017 Episodic Nutritional deficiencies (3 sources) Cobalamin deficiency; Translations: [Deficiency of other specified B group vitamins] Onset: 09-26-1998 06-28-2019 Episodic Other connective tissue disease (4 sources) Pain in both feet; Translations: [Pain in right foot] Onset: 09-08-2022 Episodic Other connective tissue disease (3 sources) Fibromyalgia; Translations: [Fibromyalgia] Onset: 04-26-2017 06-28-2019 Episodic Other gastrointestinal disorders (4 sources) Heartburn; Translations: [Diarrhea, unspecified] Onset: 06-06-2017 Episodic Other injuries and conditions due to external causes (4 sources) Frostbite; Translations: [Superficial frostbite of unspecified sites, sequela] Onset: 09-08-2022 Episodic Unclassified (1 source) Personal history of systemic steroid therapy; Translations: [H/O steroid therapy] Onset: 03-31-2017 03-31-2017 Episodic Results Test Name Value Interpretation Reference Range Facility Absolute lymphocyte countOrd ered By: Rian Strange on 04-29-2025 Lymphocytes Auto (Unsp spec) [#/Vol] 1.52 10*3/uL 0.83-4.51 [facility] Absolute neutrophil countOrd ered By: Rian Strange on 04-29-2025 Neutrophils (Bld) [#/Vol] 3.2 10*3/uL 2.0-7.7 [facility] Anion gap in Serum or Plasma Ordered By: Rian Strange on 04-29-2025 Anion gap [Moles/Vol] 12 mmol/L 5-15 [facility] Automated lymphocyte count a s percentage of total leukocytesOrdered By: Rian Strange on 04-29-2025 Lymphocytes/100 WBC Auto (Unsp spec) 27.3 % 19-41 [facility] BUN/creatinine ratioOrdered By: Rian Paulo on 04-29-2025 Urea nitrogen/Creatinine [Mass ratio] 8.6 mg/mg Low 10-20 [facility] Basophil percentageOrdered B y: Riansun Paulo on 04-29-2025 Basophils/100 WBC (Bld) 0.5 % 0-1 [facility] Carbon dioxide, total [Moles /volume] in Central venous bloodOrdered By: iRan Strange on 04-29-2025 CO2 [Moles/Vol] 23.5 mmol/L 21.0-32.0 [facility] Chloride assayOrdered By: Brett Strange on 04-29-2025 Chloride [Moles/Vol] 105 mmol/L 98-108 [facility] Eosinophil percentageOrdered By: Rian Strange on 04-29-2025 Eosinophils/100 WBC (Bld) 3.1 % 0-5 [facility] Erythrocyte distribution wid th ratioOrdered By: Riansun Paulo on 04-29-2025 Erythrocyte distribution width (RBC) [Ratio] 12.5 % 11.6-14.6 [facility] Erythrocyte distribution wid th standard deviationOrdered By: Riansun Paulo on 04-29-2025 Erythrocyte distribution width (RBC) [Ratio] 41.1 fl 35.1-43.9 [facility] Glomerular filtration rate ( GFR) estimation/1.73 sq m using serum, plasma, or whole bOrdered By: Rian Strange on 04-29-2025 GFR/1.73 sq M.predicted among non-blacks MDRD (S/P/Bld) [Vol rate/Area] 111 mL/min/{1.73_m2} >60 [facility] Comment on above: mL/min/1.73m2 CKD-EP I Creatinine Equation (2020) Hematocrit Auto (Bld) [Volum e fraction]Ordered By: Rian Strange on 04-29-2025 Hematocrit (Bld) [Volume fraction] 38.5 % Low 40-54 [facility] Hemoglobin measurementOrdere d By: Rian Strange on 04-29-2025 Hemoglobin (Bld) [Mass/Vol] 13.1 g/dL 13.0-16.5 [facility] Immature granulocytes/100 WB C Auto (Bld)Ordered By: Rian Strange on 04-29-2025 Immature granulocytes/100 WBC (Bld) 0.200 % 0.0-0.9 [facility] Comment on above: IG% - Immature Granu locytes (promyelocytes, myelocytes and metamyelocytes) > 1% indicates that a LEFT SHIFT is Present. MCV (mean corpuscular volume ) determinationOrdered By: Rian Strange on 04-29-2025 MCV (RBC) [Entitic vol] 89.1 fL 80-94 [facility] Mean corpuscular hemoglobin (MCH) determinationOrdered By: Riansun Strange on 04-29-2025 MCH (RBC) [Entitic mass] 30.3 pg 27.0-32.0 [facility] Mean corpuscular hemoglobin concentration (MCHC) determinationOrdered By: Riansun Strange on 04-29-2025 MCHC (RBC) [Mass/Vol] 34.0 g/dL 32-36 [facility] Mean platelet volume determi nationOrdered By: Riansun Strange on 04-29-2025 Platelet mean volume (Bld) [Entitic vol] 8.7 fL 6.2-12.0 [facility] Monocyte percentageOrdered B y: Rian Strange on 04-29-2025 Monocytes/100 WBC (Bld) 10.6 % High 0-10 [facility] Neutrophil percentageOrdered By: Riansun Strange on 04-29-2025 Neutrophils/100 WBC (Bld) 58.3 % 47-70 [facility] Nucleated red blood cell per centageOrdered By: Rian Strange on 04-29-2025 Nucleated RBC/100 WBC (Bld) [Ratio] 0 % 0-5 [facility] Platelet countOrdered By: sun Strange on 04-29-2025 Platelets (Bld) [#/Vol] 393 10*3/uL 150-450 [facility] Potassium measurement (mass/ volume)Ordered By: Riansun Strange on 04-29-2025 Potassium (Unsp spec) [Mass/Vol] 3.4 mmol/L 3.3-5.1 [facility] RBC Auto (Bld) [#/Vol]Ordere d By: Riansun Strange on 04-29-2025 RBC (Bld) [#/Vol] 4.32 10*6/uL Low 4.6-6.2 [facility] Serum creatinine measurement (mass/volume)Ordered By: [facility] on 04-29-2025 Creatinine [Mass/Vol] 0.80 mg/dL 0.70-1.20 [facility] Serum glucose measurement (m ass/volume)Ordered By: [facility] on 04-29-2025 Glucose [Mass/Vol] 130 mg/dL High 70-99 [facility] Serum or plasma calcium agustina urement (mass/volume)Ordered By: [facility] on 04-29-2025 Calcium [Mass/Vol] 9.0 mg/dL 7.6-11.0 [facility] Serum or plasma urea nitroge n measurement (mass/volume)Ordered By: [facility] on 04-29-2025 Urea nitrogen [Mass/Vol] 7 mg/dL 4-19 [facility] Sodium levelOrdered By: [facility] on 04-29-2025 Sodium [Moles/Vol] 141 mmol/L 133-145 [facility] White blood cell (WBC) count Ordered By: [facility] on 04-29-2025 WBC (Bld) [#/Vol] 5.6 10*3/uL 4.4-11.0 [facility] RIAZ BACA ([id number]) 1980 M [facility] Date Time Provider Department 04/09/25 SHAVON ESCALONA During your visit today, we recorded the following information about you: Shavon Escalona APRN.NUMERICAL CONTROL MACHINE TOOL OPERATOR 04/09/2025 2:54 PM Signed Patient is not established with Dr. Pineda. I can not fill any paperwork for him for court. I have removed Dr. Pineda from his chart. He will need to be placed in an establish care spot if he wishes but we will not fill out any paperwork at this type of visit. Shavon Escalona APRN.David Nick RN 04/09/2025 4:19 PM Signed Appt rescheduled with provider that is willing to see him to assist filling out forms needed. David Nunez RN Allergies As of Date: 04/09/2025 Noted Allergy Reaction CEFAZOLIN 06/03/2017 2 - Rash 4 - Hives Comments: Other reaction(s): hives PENICILLINS 06/03/2017 2 - Rash 4 - Hives 14 - Other: See Comments Comments: Other reaction(s): hives Date Reviewed: 09/08/2022 Reviewed by: Dora Sanchez MA - Fully Assessed Prescriptions as of 04/09/2025 - gabapentin (NEURONTIN) 800 mg tablet Take 800 mg by mouth three times daily. - naproxen (NAPROSYN) 500 mg tablet Take 1 tablet by mouth twice daily as needed for pain. Take with food. - BD TUBERCULIN SYRINGE 1 mL 25 gauge x 5/8 syrg use as directed with B12 INJECTION - Syringe with Needle, Safety (3CC SAFETY SYRINGE 25GX5/8) 3 mL 25 gauge x 5/8 syrg 1 mL once every month. For use with B12 injection - cyanocobalamin (VITAMIN B-12) 1,000 mcg/mL Inject 1 mL intramuscularly once every month. - omeprazole (PRILOSEC) 20 mg capsule Take 1 capsule by mouth once daily. Take prior to meal. - gabapentin (NEURONTIN) 600 mg tablet Take 2 tablets by mouth three times daily for 90 days. - Omeprazole 20 mg TbEC Take 20 mg by mouth once daily. - Loperamide HCl (IMODIUM) 2 mg tab Take 1 tablet by mouth as needed. Problem List As Of Date 04/09/2025 Noted Resolved Crohn's disease (HCC) [K50.90] Fibromyalgia [M79.7] 04/26/2017 Diverticulitis [K57.92] Chronic fatigue syndrome with fibromyalgia [G93*09/26/1998 B12 deficiency [E53.8] 09/26/1998 GERD (gastroesophageal reflux disease) [K21.9] ABELINO (generalized anxiety disorder) [F41.1] 09/26/1998 History of methamphetamine abuse (HCC) [F15.11] 09/08/2022 Frostbite [T33.90XA] 09/08/2022 Foot pain, bilateral [M79.671, M79.672] 09/08/2022 Encounter Status:Closed by DAVID NUNEZ on 04/09/25 Normal [facility] History AND Physic francisco 09-07-2022 Wound Ctr History & Physical [facility] [address] [place] [address] H P Exam - Wound Care 09/07/22 1602 MR#: [id number] Acct: [id number] Name: RIAZ BACA Rep #: [id number] : 1980 42 From: Kary Webster NP [employer]-C PCP: Dr. Arlene Quintero Status:DIS RCR Location: History of Present Illness Date of Service: 09/07/22 Chief Complaint: Frostbite of feet, right foot pain History of Wound: Patient is 42 year old male who presents to the wound healing center after obtaining frostbite while sleeping outside. He was first seen in the ED on 08/25/22 for foot pain caused by the frostbite that occurred the week before the ED visit. He was given Toradol and Gabapentin and [facility] He is now living at a half way house, so he no longer is in the elements. He returned to the ED on 08/27/22 for bilateral foot pain. At that time he had not followed up with PCP or podiatry. He was seeking pain medication. He comes in today for further evaluation. He denies any history of illicit drug use, although it is noted in his chart he has a history of methadone abuse. He states his right foot is so painful that it is numb and tingly. He tells me he has followed up with podiatry and they have done nothing to help. He states he saw Dr. Marrero. He denies having any x-rays done of his right foot. He has been keeping his feet dry. He denies fever, chills, nausea and vomiting. Progress of Wound: There are no wounds on his right foot. There is hardened dark skin surrounding his 3rd, 4th and 5th toes and on the proximal plantar surface of his foot. PFSH Home Medications omeprazole 20 mg capsule,delayed release 20 mg PO DAILY 06/14/19 [History Last Taken Unknown] gabapentin 800 mg tablet 800 mg PO TID #21 tabs 08/25/22 [Rx Last Taken Unknown] ibuprofen 600 mg tablet 600 mg PO Q6H PRN pain #30 tabs 08/25/22 [Rx Last Taken Unknown] cyanocobalamin (vitamin B-12) 1,000 mcg/mL injection solution mcg subcut QWEEK 09/07/22 [History Last Taken Unknown] Allergy/AdvReac Type Severity Reaction Status Date / Time cefazolin [From [facility]] Allergy Hives Verified 08/27/22 16:17 Penicillins Allergy Hives Verified 09/07/22 13:28 Surgical History (Reviewed 09/15/22 @ 13:59 by Kary Webster [employer], [employer]-C) History of bowel resection Social History (Updated 09/15/22 @ 14:05 by Kary Webster [employer], [employer]) Smoking Status: Current every day smoker tobacco type: cigarettes substance use type: former substance user Date of last use: denies use of illicit substances but has history of positive tox screens. ROS Constitutional Constitutional: Reports other Details: Patient is anxious and jittery ; Denies fever(s), frequent falls or headache(s) Eyes Eyes: Reports none ENT HEENT: Reports none Cardiovascular Cardiovascular: Denies chest pain or dyspnea Respiratory/Chest Respiratory/Chest: Denies cough or dyspnea Gastrointestinal Gastrointestinal: Reports none Musculoskeletal Musculoskeletal: Reports stiffness and tingling Integumentary Integumentary: Reports skin pain Neurologic Neurologic: Reports as per HPI, numbness and tingling Psychiatric Psychiatric: Reports anxiety and difficulty concentrating Endocrine Endocrinology: Reports none Vital Signs Vital Signs Vital Signs: 09/07/22 13:12 Temperature 97.8 F Temperature Source Temporal Pulse Rate 113 H Respiratory Rate 16 Blood Pressure 123/85 H Blood Pressure Mean 97 Blood Pressure Source Monitor Blood Pressure Position Sitting Blood Pressure Location Right Arm Oxygen Delivery Method Room Air Weight Weight: 160 lb Body Mass Index (BMI) 24.3 Physical Exam Const alert and oriented x3 General Appearance: anxious HEENT normocephalic Head and Scalp: atraumatic Eyes General Eye: normal appearance of both eyes Neck full ROM Resp normal respiratory effort, normal air movement and clear to auscultation bilaterally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 cutoff: 5 ng/mLFor medical purposes only; not valid for forensic use.The drug analyte detected in this assay, 9-carboxy THC, is a xqeibkvlvhhfzowje-5-djrfiqohllstzmzijqzg (THC). Detection of 9-carboxy THC suggestsuseof, or exposure to, a product containing THC. This test cannotdistinguishbetween prescribed or non-prescribed forms of THC, nor can itdistinguishbetween active or passive use. The 9-carboxy THC metabolite can bedetectedin urine for several weeks. Normalization of results to creatinineconcentration can help document elimination or suggest recent use, whenspecimens are collected at least one week apart.Test developed and characteristics determined by [facility]. SeeCompliance Statement B: Gogobot/CSPerformed by [facility],[address] [place] [address] jrf.Gogobot, Eduardo Quesada MD - Lab. Director Performed By: #### 9 0369 ####[facility] Reference [id number] [place] [address] Drug Conf, Opiates, Urineon 02-03-2018 6_AM, Urine <10 Normal [facility] Comment on above: Result Comment: INTE RPRETIVE INFORMATION: Opiates, Urine, QuantitativeMethodology: Quantitative Liquid Chromatography-Tandem MassSpectrometryPositive cutoff: 20 ng/mL except as specified below6-acetylmorphine 10 ng/mLFor medical purposes only; not valid for forensic use.Identification of specific drug(s) taken by specimen donor isproblematic dueto common metabolites, some of which are prescription drugs themselves.Theabsence of expected drug(s) and/or drug metabolite(s) may indicatenon-compliance, inappropriate timing of specimen collection relative todrugadministration, poor drug absorption, diluted/adulterated urine, orlimitations of testing. All drug analytes covered are in thenon-glucuronidated (free) forms. The concentration value must begreater thanor equal to the cutoff to be reported as positive. A very small amountof anunexpected drug analyte in the presence of a large amount of anexpected druganalyte may reflect pharmaceutical impurity. Interpretive questionsshould bedirected to the laboratory.Test developed and characteristics determined by [facility]. SeeCompliance Statement B: Gogobot/ Performed By: #### 9 0364 ####[employer] Reference [id number] [place] [address] Codeine, Urine <20 Normal [facility] Comment on above: Performed By: #### 9 0364 ####[facility] Reference [id number] [place] [address] Hydrocodone, Urine <20 Normal [facility] Comment on above: Performed By: #### 9 0364 ####[facility] Reference [address] [place] [address] Hydromorphone, Urine <20 Normal [facility] Comment on above: Performed By: #### 9 0364 ####[facility] Reference [id number] [place] [id number] Morphine, Urine <20 Normal [facility] Comment on above: Performed By: #### 9 0364 ####[facility] Reference [id number] [place] [address] Norhydrocodone <20 Normal [facility] Comment on above: Result Comment: Perf ormed by [facility],[address] [place] [address] dot.Gogobot, Eduardo Quesada MD - Lab. Director Performed By: #### 9 0364 ####[facility] Reference [id number] [place] [address] [place] [address] Noroxycodone, Urine <20 Normal [facility] Comment on above: Performed By: #### 9 0364 ####[facility] Reference [id number] [place] [address] Noroxymorphone, Urine <20 Normal [facility] Comment on above: Performed By: #### 9 0364 ####[facility] Reference [id number] [place] [address] Opiates, Urine, Oxycodone <20 Normal [facility] Comment on above: Performed By: #### 9 0364 ####[facility] Reference [id number] [place] [address] Opiates, Urine, Oxymorphone <20 Normal [facility] Comment on above: Performed By: #### 9 0364 ####[facility] Reference [id number] [place] [address] Plan of Careon 02-03-2018 HIM IP Note OR Machine Sign Writer Normal [facility] HIM IP Note OR Machine Sign Writer Normal [facility] HIM IP Note OR Machine Sign Writer Normal [facility] Progress Noteon 02-03-2018 HIM IP Note OR Machine Sign Writer Normal [facility] HIM IP Note OR Machine Sign Writer Normal [facility] Plan of Careon 02-02-2018 HIM IP Note OR Machine Sign Writer Normal [facility] HIM IP Note OR Machine Sign Writer Normal [facility] HIM IP Note OR Machine Sign Writer Normal [facility] Progress Noteon 02-02-2018 HIM IP Note OR Machine Sign Writer Normal [facility] HIM IP Note OR Machine Sign Writer Normal [facility] Progress Noteon 02-01-2018 HIM IP Note OR Machine Sign Writer Normal [facility] CBC With Platelet No Differe ntial01-31-2018 Erythrocyte distribution width Auto Ratio (RBC) 12.4 fL Normal 11.5-15.0 [facility] Erythrocytes (RBC) 4.54 E12/L Normal 3.80-5.80 [facility] Hematocrit (HCT) 38.6 % Normal 37.0-54.0 [facility] Hemoglobin mass conc (Bld) 13.7 g/dL Normal 12.5-16.5 [facility] MCH 30.2 pg Normal 26.0-35.0 [facility] MCHC mass conc (RBC) 35.5 % High 32.0-34.5 [facility] MCV 85.0 fL Normal 80.0-99.9 [facility] Platelet mean volume (PMV) 9.5 fL Normal 7.0-12.0 [facility] Platelets 339 E9/L Normal 130-450 [facility] WBC (Leukocytes) 11.6 E9/L High 4.5-11.5 [facility] Comprehensive Metabolic Pane estuardo 01-31-2018 Alanine aminotransferase (ALT) 37 U/L Normal 0-40 [facility] Albumin 4.2 g/dL Normal 3.5-5.2 [facility] Alkaline phosphatase (ALP) 65 U/L Normal 40-129 [facility] Anion gap 19 mmol/L High 7-16 [facility] Aspartate aminotransferase (AST) 36 U/L Normal 0-39 [facility] Bilirubin (total) 1.5 mg/dL High 0.0-1.2 [facility] Calcium 9.1 mg/dL Normal 8.6-10.2 [facility] Chloride 93 mmol/L Low 98-107 [facility] CO2 25 mmol/L Normal 22-29 [facility] Creatinine 1.0 mg/dL Normal 0.7-1.2 [facility] eGFR (black) mL/min/{1.73_m2} Normal [facility] eGFR (non-black) mL/min/{1.73_m2} Normal >=60 [facility] Comment on above: Result Comment: Student Liaison Officer nela Kidney Disease: less than 60 ml/min/1.73 sq.m. Kidney Failure: less than 15 ml/min/1.73 sq.m.Results valid for patients 18 years and older. Glucose mass conc 97 mg/dL Normal 74-109 [facility] Potassium molar conc 3.5 mmol/L Normal 3.5-5.0 [facility] Protein 6.4 g/dL Normal 6.4-8.3 [facility] Sodium 137 mmol/L Normal 132-146 [facility] Urea nitrogen 7 mg/dL Normal 6-20 [facility] ED Noteon 01-31-2018 HIM IP Note OR Machine Sign Writer Normal [facility] HIM IP Note OR Machine Sign Writer Normal [facility] HIM IP Note OR Machine Sign Writer Normal [facility] HIM IP Note OR Machine Sign Writer Normal [facility] ED Provider Noteon 8 HIM IP Note OR Machine Sign Writer Normal [facility] History and Physicalon 01-31 HIM IP Note OR Machine Sign Writer Normal [facility] Plan of Careon 01-31-2018 HIM IP Note OR Machine Sign Writer Normal [facility] HIM IP Note OR Machine Sign Writer Normal [facility] Progress Noteon 01-31-2018 HIM IP Note OR Machine Sign Writer Normal [facility] HIM IP Note OR Machine Sign Writer Normal [facility] Serum Drug Screenon 02-01-20 18 Acetaminophen mass conc <5.0 Low 10.0-30.0 [facility] Ethanol mg/dL Normal [facility] Comment on above: Result Comment: Not Detected Salicylate <0.3 Normal 0.0-30.0 [facility] TCA Screen Negative Normal Cutoff:300 [facility] TSH w/out Reflexon 8 Thyroid stimulating hormone (TSH) 1.970 uIU/mL Normal 0.270-4.200 [facility] Troponinon 01-31-2018 Troponin I.cardiac mass conc ng/mL Normal 0.00-0.03 [facility] Comment on above: Result Comment: TROP ONIN T BLOOD LEVELS: 0.03 ng/mL Upper Reference Limit0.04 - 0.09 ng/mL Possible myocardial injury >= 0.10 ng/mL Myocardial injury UR Drugs of Abuse Panelon UR Amphetamines Screen Positive Abnormal Negat sandra <1000 ng/mL [facility] Comment on above: Result Comment: High concentrations of ephedrine/pseudoephedrine orphenylpropanolamine may cause false positive resultsfor amphetamine. Therefore, confirmatory testing foramphetamine should be considered if clinically indicated. UR Barbiturates Screen NOT DETECTED Normal Negat sandra < 200 ng/mL [facility] UR Benzo Screen NOT DETECTED Normal Negative < 200 ng/mL [facility] UR Cannabinoids Screen Positive Abnormal Negat sandra < 50ng/mL [facility] UR Cocaine Screen NOT DETECTED Normal Negative < 300 ng/mL [facility] UR Methadone Screen NOT DETECTED Normal Negative <300 ng/mL [facility] UR Opiates Screen Positive Abnormal Negative < 300ng/mL [facility] Comment on above: Result Comment: Note : The Opiate Screen is not intended to detect Oxycodone.If this is a drug of interest in this patient, a urineOxycodone assay should be ordered. UR PCP Screen NOT DETECTED Normal Negative < 25 ng/mL [facility] Comment on above: Result Comment: A ur ine drug screen assay provides only a preliminaryanalytical test result. A more specific alternative chemicalmethod must be used to obtain a confirmed analytical result(eg., gas chromatography or thin layer chromatography).Clinical consideration and professional judgment should beapplied to any drug of abuse test result, particularly whenpreliminary positive results are used.Unconfirmed screening results should be used for medicalpurposes only and not for any legal or employment purpose. UR Propoxyphene Screen NOT DETECTED Normal Negat sandra <300 ng/mL [facility] Auto Diffon 06-15-2017 Basophils Auto #/vol (Bld) 0.0 E3/mcL Normal 0.0-0.2 [facility] Comment on above: Order Comment: Order Added by Discern Expert. Performed By: #### 2 [id number] ####[facility] [address] [place] [address] Basophils/100 WBC Auto (Bld) 0.3 % Normal 0.0-2.0 [facility] Comment on above: Order Comment: Order Added by Discern Expert. Performed By: #### 2 [id number] ####[facility] [address] [place] [address] Eos Absolute 0.1 E3/mcL Normal 0.0-0.7 [facility] Comment on above: Order Comment: Order Added by Discern Expert. Performed By: #### 2 193616 ####OMERO [address] [place] [address] Eosinophils/100 leukocytes 0.7 % Normal 0.0-11.0 [facility] Comment on above: Order Comment: Order Added by Discern Expert. Performed By: #### 2 [id number] ####OMERO [address] [place] [address] Lymphocytes 1.2 E3/mcL Normal 1.2-3.4 [facility] Comment on above: Order Comment: Order Added by Discern Expert. Performed By: #### 2 [id number] ####[facility] [address] [place] [address] Lymphocytes/100 leukocytes 15.2 % Low 20.0-55.0 [facility] Comment on above: Order Comment: Order Added by Discern Expert. Performed By: #### 2 956365 ####[facility] [address] [place] [address] [place]te Absolute 0.8 E3/mcL High 0.0-0.7 [facility] Comment on above: Order Comment: Order Added by Discern Expert. Performed By: #### 2 [id number] ####[facility] [address] [place] [address] Monocytes/100 leukocytes 10.1 % High 0.0-10.0 [facility] Comment on above: Order Comment: Order Added by Discern Expert. Performed By: #### 2 [id number] ####OMERO [address] [place] [address] Neutro Absolute 5.8 E3/mcL Normal 1.4-6.5 [facility] Comment on above: Order Comment: Order Added by Discern Expert. Performed By: #### 2 [id number] ####OMERO [address] [place] [address] Neutro Auto 73.7 % Normal 37.0-75.0 [facility] Comment on above: Order Comment: Order Added by Discern Expert. Performed By: #### 2 [id number] ####OMERO [address] [place] [address] CBC w/ Auto Diffon 7 Erythrocyte distribution width Auto Ratio (RBC) 12.3 % Normal 11.5-14.5 [facility] Comment on above: Performed By: #### 2 [id number] ####OMERO [address] [place] [address] Erythrocytes (RBC) 4.91 E6/mcL Normal 3.90-6.10 [facility] Comment on above: Performed By: #### 2 074899 ####OMERO [address] [place] [id number] Hematocrit (HCT) 43.4 % Normal 42.0-52.0 [facility] Comment on above: Performed By: #### 2 [id number] ####OMERO [address] [place] [id number] Hemoglobin mass conc (Bld) 14.9 g/dL Normal 13.5-18.0 [facility] Comment on above: Performed By: #### 2 [id number] ####OMERO [address] [place] [address] MCH 30.4 pg Normal 27.0-31.0 [facility] Comment on above: Performed By: #### 2 245641 ####OMERO [address] [place] [id number] MCHC mass conc (RBC) 34.3 g/dL Normal 33.0-37.0 [facility] Comment on above: Performed By: #### 2 493720 ####OMERO [address] [place] [address] MCV 88.4 fL Normal 78.0-100.0 [facility] Comment on above: Performed By: #### 2 584185 ####OMERO [address]HdvXpsl48[address] [place] [address] Platelet mean volume (PMV) 7.4 fL Normal 7.4-11.0 [facility] Comment on above: Performed By: #### 2 174155 ####OMERO [address]HnbQkyg40[address] [place] [address] Platelets 369 E3/mcL Normal 130-400 [facility] Comment on above: Performed By: #### 2 762620 ####OMERO [address] [place] [address] WBC (Leukocytes) 7.9 E3/mcL Normal 3.6-11.0 [facility] Comment on above: Performed By: #### 2 [id number] ####OMERO [address] [place] [address] CMPon 06-15-2017 Alanine aminotransferase (ALT) 40 Int._Unit/L Normal 10-40 [facility] Comment on above: Performed By: #### 2 [id number] ####OMERO [address]TuiFedb[address] [place] [address] Albumin 4.6 g/dL Normal 3.2-5.0 [facility] Comment on above: Performed By: #### 2 [id number] ####OMERO [address] [place] [address] Albumin/Globulin Ratio 1.9 {ratio} Normal 1.1-1.9 [facility] Comment on above: Performed By: #### 2 573602 ####OMERO [address]isDkcd15[address] [place] [address] Alk Phos 53 Int._Unit/L Normal 42-121 [facility] Comment on above: Performed By: #### 2 322589 ####OMERO [address]DhlUgkn57[address] [place] [address] Aspartate aminotransferase (AST) 25 Int._Unit/L Normal 10-42 [facility] Comment on above: Performed By: #### 2 679029 ####OMERO [address]Cmud[address] [place] [address] Bili Total 1.6 mg/dL High 0.2-1.0 [facility] Comment on above: Performed By: #### 2 731362 ####OMERO [address]RalNzct[address] [place] [address] BUN/Creatinine Ratio 7.0 ratio Normal 5.4-30.0 [facility] Comment on above: Performed By: #### 2 470193 ####OMERO [address] [place] [address] Creatinine 1.0 mg/dL Normal 0.6-1.3 [facility] Comment on above: Performed By: #### 2 [id number] ####OMEROLakeshia NavarroFspDjsh7392 [place] [address] Globulin 2.4 g/dL Normal 2.0-4.0 [facility] Comment on above: Performed By: #### 2 669096 ####OMEROLakeshia NavarroVoyZusx1436 [place] [address] Protein 7.0 g/dL Normal 6.4-8.3 [facility] Comment on above: Performed By: #### 2 376996 ####OEMROLakeshia NavarroKmgWyfi[address]706 [place] [address] Urea nitrogen 7 mg/dL Normal 7-18 [facility] Comment on above: Performed By: #### 2 055989 ####OMEROLakeshia NavarroOfiYfhs0074 [place] [address] Calcium 9.3 mg/dL Normal 8.4-10.2 [facility] Comment on above: Performed By: #### 2 184399 ####OMEROLakeshia NavarroXfsEgdw6624 [place] [address] Chloride 97 mmol/L Low 98-107 [facility] Comment on above: Performed By: #### 2 215815 ####OMEROLakeshia NavarroHskYikp6242 [place] [address] CO2 26.9 mmol/L Normal 24.0-30.0 [facility] Comment on above: Performed By: #### 2 830111 ####OMEROLakeshia NavarroMqjPmab2433 [place] [address] Glucose mass conc 131 mg/dL High 70-99 [facility] Comment on above: Performed By: #### 2 904003 ####OMEROLakeshia ChrisZweNlhr4988 [place] [address] Potassium molar conc 2.9 mmol/L Low 3.5-5.1 [facility] Comment on above: Performed By: #### 2 935088 ####OMEROLakeshia ChrisFtmCprp0557 [place] [address] Sodium 133 mmol/L Low 136-145 [facility] Comment on above: Performed By: #### 2 769481 ####OMEROLakeshia NavarroKmuWjak4217 [place] [address] Ethanolon 06-15-2017 Ethanol Lvl <5 Normal 0-15 [facility] Comment on above: Result Comment: SAMP LES WITH CONCENTRATIONS <15 MG/DL SHOULD BEINTERPRETED NEGATIVE. FOR MEDICAL USE ONLY Performed By: #### 2 [id number] ####OMERO ChrisSebUcdj0833 [place] [address] Lipase Levelon 06-15-2017 Lipase Lvl 28 U/L Normal 8-57 [facility] Comment on above: Performed By: #### 2 766180 ####OMERO ChrisStpOfbu8492 [place] [address] Magnesiumon 06-15-2017 Magnesium 2.0 mg/dL Normal 1.7-2.8 [facility] Comment on above: Performed By: #### 2 775604 ####OMERO ChrisVlkJwkq4292 [place] [address] TSHon 06-15-2017 Thyroid stimulating hormone (TSH) 1.18 mIU/m Normal 0.30-5.60 [facility] Comment on above: Performed By: #### 2 100756 ####OMERO ChrisDptMzal0809 [place] [address] U Drug Screenon 06-15-2017 U Amph Scr Positive Normal [facility] Comment on above: Result Comment: Resu lts for medical use only. Confirmation of positive results will be done when requested. Specimens are kept for one week. Performed By: #### 2 [id number] ####OMERO [address]IqfAevy[address]151 [place] [address] U Elsie Scr Negative Normal [facility] Comment on above: Performed By: #### 2 808725 ####OMERO ChrisYmwMoza[address]1 [place] [address] U Benzodia Scr Negative Normal [facility] Comment on above: Performed By: #### 2 760416 ####OMERO ChrisQvwQbfy7338 [place] [address] U Cannab Scr Negative Normal [facility] Comment on above: Performed By: #### 2 267866 ####OMERO ChrisPicApyf3971 [place] [address] U Cocaine Scr Negative Normal [facility] Comment on above: Performed By: #### 2 102971 ####OMERO TvsEfnw[address]100 [place] [address] U Opiate Scr Negative Normal [facility] Comment on above: Performed By: #### 2 501857 ####OMERO EdiEgus[address] [place] [address] U PCP Scr Negative Normal [facility] Comment on above: Performed By: #### 2 186624 ####OMERO [address]Nvoq[address] [place] [address] UA Completeon 06-15-2017 UA Blood Negative Normal Negative [facility] Comment on above: Performed By: #### 8 [id number] ####OMERO Urinalysis Automated [address]mm[address] [place] [address] UA Clarity Cloudy Abnormal Clear [facility] Comment on above: Performed By: #### 8 [id number] ####OMERO Urinalysis Automated Fb[address]htjfnm[address] [place] [address] UA Hyal Cast >20 Abnormal 0-2 [facility] [facility] Comment on above: Performed By: #### 8 [id number] ####[facility]inal[facility] [address]ubbq[address]z2888 [place] [address] UA Leuk Est Negative Normal Negative [facility] Comment on above: Performed By: #### 8 [id number] ####[facility]inalysis [facility] Qrpilapydt5892 [place] [address] UA Mucous Many Abnormal Trace [facility] Comment on above: Performed By: #### 8 [id number] ####[facility]inal[facility] [address]sw[address] [place] [id number] UA Nitrite Negative Normal Negative [facility] Comment on above: Performed By: #### 8 [id number] ####[facility] Urinalysis [facility] Wa[address]zekzkg260[address] [place] 6049705 UA pH 5.0 Normal 4.6-8.0 [facility] Comment on above: Performed By: #### 8 [id number] ####[facility]inal[facility] [address]zadlnthiy9534 [place] [address] UA Protein 2+ Abnormal Negative [facility] Comment on above: Performed By: #### 8 [id number] ####[facility] Iccilgmukl5196 [place] [address] UA Spec Grav 1.025 Normal 1.003-1.030 [facility] Comment on above: Performed By: #### 8 [id number] ####[facility]inal[facility] Wqbqnbwntx7595 [place] [address] UA Urobilinogen 4.0 mg/dL Abnormal [facility] Comment on above: Performed By: #### 8 [id number] ####[facility] Korlwggkga1677 [place] [address] UA WBC 0-5 Normal 0-5 [facility] Comment on above: Performed By: #### 8 [id number] ####[facility]inalysis [facility] [address] [place] [address] Urine, color Yudelka Abnormal Yellow [facility] Comment on above: Performed By: #### 8 [id number] ####[facility]inalysis [facility] Gwrzqgpmjg2257 [place] [address] Urine, erythrocytes 3-5 Abnormal 0-3 [facility] Comment on above: Performed By: #### 8 [id number] ####[facility]inalysis [facility] Rgvkuldrqt6176 [place] [address] Urine, glucose Negative Normal Negative [facility] Comment on above: Performed By: #### 8 [id number] ####[facility] Urinalysis [facility]ated Wcwuckyeej1577 [place] [address] Urine, ketones presence 2+ Abnormal Negative [facility] Comment on above: Performed By: #### 8 [id number] ####[facility] Urinalysis [facility]ated Utqlftddxx9228 [place] [address] Urine, urobilinogen Positive Abnormal Negative [facility] Comment on above: Performed By: #### 8 [id number] ####[facility] Urinalysis [facility]ated [address] [place] [id number] eGFRon 06-15-2017 eGFR (non-black) mL/min/{1.73_m2} Normal [facility] Comment on above: Order Comment: Order added by Discern Expert. Performed By: #### 1 [id number] ####[facility] JffHvbx7222 [place] [address] Vit B12on 05-04-2017 Cobalamins (Vitamin B12) 245 pg/mL Normal 180-914 [facility] Comment on above: Performed By: #### 2 [id number] ####[facility] RhqYbnr2782 [place] [address] ACTHon 04-04-2017 ACTH 19 pg/mL Normal [facility] Comment on above: Result Comment: ---- REFERENCE VALUE (a.m. collection)Test Performed by:[place] [address] Performed By: #### C BCDIF, CMET, TESTOT, FT4, LH, TSH, PROLAC, FSH, TPOABS ####Unless otherwise noted, all testing performed by [place] [address] [address] [place], [place] [phone]: [id number] Director: Antoine Mazariegos M.D. AKASH PANELon 04-04-2017 ANTINUCLEAR ANTIBODY Negative Normal NEGATIVE [facility] Comment on above: Performed By: #### A NAP2 ####[facility], [place] [phone] ANTI-CENTROMERE <0.2 Normal [facility] Comment on above: Result Comment: REF VALUES< 1.0 = NEGATIVE>=1.0 = POSITIVE Performed By: #### A NAP2 ####[facility], [place] [phone] ANTI-CHROMATIN <0.2 Normal [facility] Comment on above: Result Comment: REF VALUES< 1.0 = NEGATIVE>=1.0 = POSITIVE Performed By: #### A NAP2 ####[facility], [place] [phone] ANTI-DNA [DS] <1.0 Normal [facility] Comment on above: Result Comment: REF VALUESNEGATIVE: <= 4 IU/MLEQUIVOCAL: 5- 9 IU/MLPOSITIVE: >=10 IU/ML Performed By: #### A NAP2 ####[facility], [place] [phone] ANTI-MARYAM-1 <0.2 [facility] Comment on above: Result Comment: REF VALUES< 1.0 = NEGATIVE>=1.0 = POSITIVE Performed By: #### A NAP2 ####[facility], [place] [phone] ANTI-RIBOSOMAL P <0.2 [facility] Comment on above: Result Comment: REF VALUES< 1.0 = NEGATIVE>=1.0 = POSITIVE Performed By: #### A NAP2 ####[facility], [place] [phone] ANTI-CONSTRUCTION MGR <0.2 [facility] Comment on above: Result Comment: REF VALUES< 1.0 = NEGATIVE>=1.0 = POSITIVE Performed By: #### A NAP2 ####[facility], [place] [phone] ANTI-SCL-70 <0.2 [facility] Comment on above: Result Comment: REF VALUES< 1.0 = NEGATIVE>=1.0 = POSITIVE Performed By: #### A NAP2 ####[facility], [place] [phone] ANTI-SM <0.2 [facility] Comment on above: Result Comment: REF VALUES< 1.0 = NEGATIVE>=1.0 = POSITIVE Performed By: #### A NAP2 ####[facility], [place] [phone] ANTI-SM/CONSTRUCTION MGR <0.2 [facility] Comment on above: Result Comment: REF VALUES< 1.0 = NEGATIVE>=1.0 = POSITIVE Performed By: #### A NAP2 ####[facility], [place] [phone] ANTI-SSA <0.2 Normal [facility] Comment on above: Result Comment: REF VALUES< 1.0 = NEGATIVE>=1.0 = POSITIVE Performed By: #### A NAP2 ####[facility], [place] [phone] ANTI-SSB <0.2 Normal [facility] Comment on above: Result Comment: REF VALUES< 1.0 = NEGATIVE>=1.0 = POSITIVE Performed By: #### A NAP2 ####[facility], [place] [phone] CBC with Diffon 04-04-2017 Basophils Auto #/vol (Bld) 0.1 K/mcL Normal 0-0.2 [facility] Comment on above: Performed By: #### C BCDIF, CMET, TESTOT, FT4, LH, TSH, PROLAC, FSH, TPOABS ####Unless otherwise noted, all testing performed by [address] [phone]: [id number] Director: Antoine Mazariegos M.D. Basophils/100 WBC Auto (Bld) 0.9 % Normal [facility] Comment on above: Performed By: #### C BCDIF, CMET, TESTOT, FT4, LH, TSH, PROLAC, FSH, TPOABS ####Unless otherwise noted, all testing performed by [address] [phone]: [id number] Director: Antoine Mazariegos M.D. Eosinophils 0.2 K/mcL Normal 0-0.5 [facility] Comment on above: Performed By: #### C BCDIF, CMET, TESTOT, FT4, LH, TSH, PROLAC, FSH, TPOABS ####Unless otherwise noted, all testing performed by [address] [phone]: [id number] Director: Antoine Mazariegos M.D. Eosinophils/100 leukocytes 3.8 % Normal [facility] Comment on above: Performed By: #### C BCDIF, CMET, TESTOT, FT4, LH, TSH, PROLAC, FSH, TPOABS ####Unless otherwise noted, all testing performed by [address] [phone]: [id number] Director: Antoine Mazariegos M.D. Erythrocyte distribution width Auto Ratio (RBC) 12.9 % Normal 10-14.3 [facility] Comment on above: Performed By: #### C BCDIF, CMET, TESTOT, FT4, LH, TSH, PROLAC, FSH, TPOABS ####Unless otherwise noted, all testing performed by [address] [phone]: [id number] Director: Antoine Mazariegos M.D. Erythrocytes (RBC) 5.07 M/mcL Normal 4.0-5.5 [facility] Comment on above: Performed By: #### C BCDIF, CMET, TESTOT, FT4, LH, TSH, PROLAC, FSH, TPOABS ####Unless otherwise noted, all testing performed by [address] [phone]: [id number] Director: Antoine Mazariegos M.D. Hematocrit (HCT) 47.3 %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 Giraldo. Forms to be brought and reviewed with patient. [facility] Comment on above: Evaluation approved by Wilma Giraldo. Forms to be brought and reviewed with patient. Start: 05-27-2024 Covid-19 Vaccine ( season) Covid-19 Vaccine ( season) [facility] Start: 2024 Diabetes Screening Diabetes Screenin g [facility] Start: 2024 Screening for malign ant neoplasm of colon [facility] Start: 09-08-2023 COVID-19 VACCINE (#1) COVID-19 VACCI NE (#1) [facility] Comment on above: Postponed from 09/06 (Declined at this time) Start: 05-27-2023 Influenza vaccination INFLUENZ A (Season Ended) [facility] Start: 03-25-2023 Influenza vaccination INFLUENZA (#1) [facility] Comment on above: Postponed from 05/27 (Declined at this time) Start: 09-26-2022 DEPRESSION ASSESSMENT DEPRESSION ASS ESSMENT [facility] Start: 05-27-2017 SEQUENTIAL INFLUENZA VACCINE (#1) SEQUENTIAL INFLUENZA VACCINE (#1) [facility] Work Phone: Start: 05-12-2017 Ambulatory 05/12/2017 Off ice Visit Endocrinology Raphael Lehman, NUMERICAL CONTROL MACHINE TOOL OPERATOR [address] [place] [id number] [facility] Start: 2014 Lipid panel Lipid Screening [facility] Start: 2014 LIPID SCREEN LIPID SCREEN [facility] Start: 07-27-2011 Medicare Annual Wellness Visit Medicare Annual Wellness Visit [facility] Start: 1998 Hepatitis B Vaccine (1 of 3 - 19+ 3-dose series) Hepatitis B Vaccine (1 of 3 - 19+ 3-dose series) [facility] Start: 1998 Pneumococcal vaccination Pneumococcal Vaccine (1 of 2 - PCV) [facility] Start: 1998 Urine microalbumin profile [facility] Start: 1997 Depression Screening Depression Scre ening [facility] Start: 1997 MMR (1 of 2 - Risk 2-dose series) MMR (1 of 2 - Risk 2-dose series) [facility] Start: 1989 MENINGOCOCCAL B: Consider based on risk (1 of 4 - Increased Risk Bexsero 2-dose series) MENINGOCOCCAL B: Consider based on risk (1 of 4 - Increased Risk Bexsero 2-dose series) [facility] Start: 1985 PNEUMOCOCCAL (1 - PCV) PNEUMOCOCCAL (1 - PCV) [facility] Start: 1980 HEPATITIS A (1 of 2 - Risk 2-dose series) HEPATITIS A (1 of 2 - Risk 2-dose series) [facility] Start: 1979 TETANUS EVERY 10 YR TETANUS EVERY 10 YR [facility] Work Phone: Patient Education [facility] Work Phone: Patient referral [facility] Work Phone: Payers Date Payer Category Payer Medicaid [id number] 2022 Medicare [id number] 2022 Self-pay [id number] 2011 Medicare [id number] 2011 Medicare Unknown [id number] Unknown [id number] Unknown [id number] Unknown [id number] Unknown [id number] Unknown [id number] Unknown [id number] Social History Date Type Detail Facility Start: 05-04-2017 End: 04-29-2025 Tobacco smoking status NMIS Current every day smoker [facility] Start: 05-04-2017 End: 10-19-2022 Cigarettes smoked current (pack per day) - Reported [facility] Work Phone: Start: 1980 Sex Assigned At Not on file [facility] Work Phone: Start: 08-19-2022 End: 09-07-2022 Tobacco smoking status NMIS Unknown if ever smoked [facility] Work Phone: Start: 10-14-2019 Homeless [facility] Start: 08-17-2019 Cigarettes [facility] Start: 1980 Sex Assigned At Male [facility] Start: 09-08-2022 Tobacco smoking stat us NHIS Occasional tobacco smoker [facility] History of tobacco use Cigarette Smoker [facility] History of tobacco use Cigar Smoker [facility] Start: 09-08-2022 Tobacco use and exposure Smokeless tobacco non-user [facility] Start: 09-08-2022 Alcohol intake Ex-drinker (finding) [facility] Start: 09-08-2022 Tobacco Comment occasional - social [facility] Start: 06-09-2017 Alcohol Comment occasionally, beer or wine with dinner at times [facility] Start: 09-08-2022 End: 10-19-2022 Tobacco use panel [facility] Adult Depression Screening Assessment 0 [facility] Medical Equipment Procedure Code Equipment Code Equipment Origin al Text Equipment Identifier Dates [id number], [id number] Start: 01-18-2020 Comment on above: use as directed with B12 INJECTION 1 mL once every elissa h. For use with B12 injection Mental Status Date Assessment Result Facility 04-29-2025 Cognitive function Level Of Cons ciousness Awake;Alert;Appropriate;Follow s Commands [facility] Work Phone: Clinical Notes 09-08-2022 to 04-29-2025 Note Date & Type Note Facility 04-29-2025 Discharge summary [facility] 04-29-2025 Discharge summary Note Date/Time April 29, 2025 10:10pm [facility] Medical Records Department [address] [place] [address] Emergency Department Summary 04/29/25 MR#: [id number] Acct: [id number] Name: RIAZ BACA Rep #:[id number] : 1980 45 From: Rian Strange MD PCP: Care Physician,No Primary Status :REG ER Location: ED HPI History of Present Illness Chief Complaint: General Illness Detail of Chief Complaint: Triage note was reviewed. Patient demanded Informant: patient Onset/Context/Timing Onset: - (Unable to determine. Patient told me to do my fucking job . He informed me that I am asking too many questions.) Context: - (Unable to determine) Timing: - ( unable to determine) Quality: I do not feel well. I have not felt well since I was born Location: Unable to determine Current Severity: Apparently his entire life Worsened by: I hate this town Relieved by: Nothing Associated Symptoms Associated Symptoms: Not able to determine Narrative Narrative: Patient is a 45-year-old male. I was informed by the security test engineer that he hasa history of amphetamine use and is homeless. Triage document he was in the waiting area for over 3 hours. He then states he needed to be seen. When I went in to speak with him he told me he needs his adrenal levels checked. I asked if he had a history of adrenal insufficiency or was recently on steroids and he told me to do my job. I informed him that I need to ask him questions todetermine what tests are appropriate. His response was do your fucking job . Patient states he has been depressed all his life. Patient has suicidal thoughts all his life. He has no specific plan. He denies headache, visual, ocular auditory symptoms. He denies cardiac respiratory symptoms. His only complaint is I do not feel well and I want checked out. Prior similar symptoms: No Recent Illness/Hospitalization: No PFSH PFSH Home Medications ?Medication ?Instructions ?Recorded ?Last Taken ?Type omeprazole 20 mg capsule,delayed 20 mg PO DAILY Unknown History release cyanocobalamin (vitamin B-12) mcg subcut QWEEK 2 Unknown History 1,000 mcg/mL injection solution Allergy/AdvReac Type Severity Reaction Status Date / Time cefazolin (From [facility]) Allergy Hives Verified 08/27/22 16:17 Penicillins Allergy Hives Verified 09/07/22 13:28 Family History no significant family his Surgical History (Reviewed 09/15/22 @ 13:59 by Kary Webster [employer]OMOBILE MECHANIC MOTOR, AUTOMOBILE MECHANIC MOTOR-C) History of bowel resection Social History (Updated 04/29/25 @ 22:[address] Rian Strange MD) housing: homeless Smoking Status: Current every day smoker tobacco type: cigarettes and e-cigarettes substance use type: former substance user Date of last use: denies use of illicit substances but has history of positive tox screens. and amphetamines ROS ROS ED Constitutional Constitutional ED: Denies chills, fever(s), subjective or sweats Eyes Eyes: Denies blurry vision or change in vision ENT ENT ED: Denies ear pain, rhinorrhea or sore throat Cardiovascular Cardiovascular: Denies chest pain or palpitations Respiratory/Chest Respiratory/Chest: Denies cough, dyspnea or dyspnea on exertion Gastrointestinal Gastrointestinal: Denies abdominal pain, diarrhea, nausea or vomiting Musculoskeletal Musculoskeletal: Denies arthralgias or myalgias Integumentary Denies rash Neurologic Neurologic: Denies paresthesias or weakness Psychiatric Psychiatric: Reports depression and suicidal thoughts; Denies suicidal ideation Endocrine Endocrinology: Denies cold intolerance or heat intolerance Hematologic/Lymphatic Hematologic/Lymphatic: Reports systems reviewed and no addt'l complaints, exceptas documented EXAM Physical Exam Const Vital Signs: 04/29/25 20:28 04/29/25 21:45 Temperature 97.8 F Temperature Source Temporal Pulse Rate 102 H Respiratory Rate 22 H Respiratory Effort Normal Non-Labored Blood Pressure 124/79 H Blood Pressure Mean 94 Pulse Ox 100 Oxygen Delivery Method Room Air Positive well nourished and well developed Constitutional Narrative: Not well-groomed. Vital signs reveal tachycardia and tachypnea. Is not hypoxicnor is he febrile. General Appearance ED: well developed; Negative for pallor HEENT Reports moist mucous membranes HEENT Narrative: Head is atraumatic no cephalic. Ears normal. Nares patent. Eyes PERRL and EOMs intact bilaterally Resp normal respiratory effort Cardio regular rate and regular rhythm Back/Spine no CVA tenderness Extremity normal to inspection General Extremety ED: Negative for edema or tenderness General Extremity: Negative for edema Neuro oriented x3 and CN's II-XII intact bilaterally Sensorium / Orientation: alert Motor Exam: strength 5/5 throughout Psych Psych Narrative: Inappropriate language. Attitude: agitated Skin no rashes or lesions noted, no wounds and skin turgor normal General Skin Exam: Negative for jaundice or pallor MDM MDM MDM Narrative Medical decision making narrative: Patient was informed I need to ask him questions. He said I am done answering her questions . History & Record Review Additional record(s) reviewed:: Prior outpatient record (Seen by plastics 2021 for frostbite of his feet.) and Prior ED visit (For follow Lul by Dr. Tiera Fall August 2022.) Lab Data Attestation: I reviewed the patient's lab results. Lab results narrative: CBC is unremarkable. MCV is normal. Electrolyte panel is remarkable for slightelevation in glucose of 130 with a normal CO2 anion gap. Labs: Laboratory Results - last 24 hr 04/29/25 21:14 WBC 5.6 RBC 4.32 L Hgb 13.1 Hct 38.5 L MCV 89.1 MCH 30.3 MCHC 34.0 RDW Std Deviation 41.1 RDW Coeff of Faraz 12.5 Plt Count 393 MPV 8.7 Immature Gran % (Auto) 0.200 Neut % (Auto) 58.3 Lymph % (Auto) 27.3 [place] % (Auto) 10.6 H Eos % (Auto) 3.1 Baso % (Auto) 0.5 Absolute Neuts (auto) 3.2 Absolute Lymphs (auto) 1.52 Nucleated RBC % 0 Sodium 141 Potassium 3.4 Chloride 105 Carbon Dioxide 23.5 Anion Gap 12 BUN 7 Creatinine 0.80 Estim Creat Clear Calc 111.63 Est GFR (MDRD) Non-Af 111 BUN/Creatinine Ratio 8.6 L Glucose 130 H Calcium 9.0 Treatment and Re-Evaluation :: Since there is no evidence of anemia. There is no kidney disease electrolyte abnormality patient will be discharged to home. Discharge Plan Triage Chief Complaint: General Illness ED Provider: Rian Strange Dx/Rx/DC Orders Clinical Impression: Fatigue, Pernicious anemia, Homeless, History of illicit drug use, Nondiabetic hyperglycemia, Encounter for medical screening examination Instructions: ED Weakness Uncertain Cause Prescriptions: No Action omeprazole 20 MG capsule 20 mg PO DAILY cyanocobalamin (vitamin B-12) 1,000 mcg/mL Solution SUBCUT QWEEK Primary Care Provider: Care Physician,No Primary Referrals: Arlene Quintero [facility] [Provider Group] - 3-5 Days Care Physician,No Primary [Primary Care Provider] - Print Language: Emirati Disposition Disposition: Home, Self Care What to do if you have Problems For any increased pain, shortness of breath, bleeding, nausea or vomiting, chestpain, or any unexpected problems, contact your Primary Care Provider. Call [facility] ([phone]) or report to the closest Emergency Room. Call 911 if necessary. 04/29/252209 <Electronically signed by Rian Strange MD> Cosigner Signature (if applicable): CC: No Primary Care Physician ~ Signed [facility] Work Phone: [phone]) 190-888507-15-2025 Telephone encounter Note* Telephone Encounter - David Nunez RN - 04/09/2025 4:19 PM EDT Appt rescheduled with provider that is willing to see him to assist filling out forms needed. David Nunez RN [facility]07-15-2025 Miscellaneous Notes* Telephone Encounter - David Nunez RN - 04/09/2025 4:19 PM EDT Appt rescheduled with provider that is willing to see him to assist filling out forms needed. David Nunez RN * Telephone Encounter - Shavon Escalona APRN.CNP - 04/09/2025 2:51 PM EDT Patient is not established with Dr. Pineda. I can not fill any paperwork for him for court. I haveremoved Dr. Pineda from his chart. He will need to be placed in an establish care spot if he wishes but we will not fill out any paperwork at this type of visit. Shavon Escalona APRN.CNP documented in this encounter[facility] Telephone encounter Note * Telephone Encounter - Shavon Escalona APRN.CNP - 04/09/2025 2:51 PM EDT Patient is not established with Dr. Pineda. I can not fill any paperwork for him for court. I haveremoved Dr. Pineda from his chart. He will need to be placed in an establish care spot if he wishes but we will not fill out any paperwork at this type of visit. Shavon Escalona APRN.JACQUELINE [facility] Work Phone: [phone] 179-837805-10-2023 History of Present illness Narrative* Geneva Rivera Ma - 02/02/2023 10:54 AM EDT POPULATION HEALTH NAVIGATION OUTREACH Action/ Leon Pineda MD Family Medicine Establish Care appt 09/08/22 Updated PCP field. Patient Identified by Name and : NO Outreach Outcome/Action PCP field updated Did you use a PCP flex slot to schedule this appointment? N/A Reason for Outreach Attribution: Consult to Primary Care Payer: Payor: MEDICARE / Plan: MEDICARE A AND B / Product Type: Medicare / Care Gap Reviewed:: N/A Reminder: Reminder note to check Health Maintenance for items below Health Maintenance items due: HEPATITIS A(1 of 2 - Risk 2-dose series) Never done PNEUMOCOCCAL(1 - PCV) Never done MMR(1 of 2 - Risk 2-dose series) Never done DTAP,TDAP,TD(1 - Tdap) Never done LIPID SCREEN Never done DEPRESSION ASSESSMENT due on 09/26/2022 Navigation Signature: Geneva Rivera Ma February 02, 2023 10:55 AM documented in this encounter[facility] History of Present illness Narrative* Leon Pineda MD - 09/08/2022 10:27 AM EST Chief Complaint Patient presents with: Establish Care: Transfer form [facility] Riaz Baca is a 42 year old male who presents here today for above complaints and for recentER visit for frostbite on his feet. Since his last visit with Kevin Hinson was more than 3 years ago and he has actually established care with [facility]. Last appointment with them was in the last week. States that he developed frostbite on 08/16 after he had been living outside due to homelessness. Is now staying at [facility] in [place]. Is able to stay there indefinitely. Had ER evaluation on 08/27 for frostbite and pain to bilateral feet. Had been treated with gabapentin and Toradol at prior ER evaluation. Given dose of [place] in the ED x1 on 08/27 and 6 tablets for home. Noted history of meth abuse. States norco at home did help with pain. Had follow up appointment on 09/03 with Dirk Marrero-foot and ankle specialist and was given refill on his Gabapentin. Advised f/u in 2 weeks on 09/21. Evaluated at wound care yesterday and told that this was not an open wound and they debrided his toes and referred him back to the foot and ankle specialist. Taking Gabapentin as prescribed and ibuprofen at home without much improvement. Has pain over the bottoms of his feet and along the sides. Currently 06/05. States this is severe and has hard time not screaming out in pain. Denies fever/chills, erythema, purulent drainage. Past medical history, appointments, medications, allergies reviewed. Previous Medical History PAST MEDICAL HISTORY Diagnosis Date B12 deficiency 1998 Chronic fatigue syndrome with fibromyalgia 1998 Crohn's disease (HCC) 1998 Diarrhea Diverticulitis Fibromyalgia 04/2017 ABELINO (generalized anxiety disorder) 1998 GERD (gastroesophageal reflux disease) Malabsorption Previous Surgical History PAST SURGICAL HISTORY Procedure Laterality Date APPENDECTOMY N/A 2009 COLECTOMY PART W/ANASTOMOSIS N/A 2009 2008 and 2009 COLONOSCOPY x4 last one 08/2012 UNL LAPAR WEDGE RESECTION SIGM COLON N/A 1998 UPPER ENDOSCOPY/EGD N/A 2012 Family History FAMILY HISTORY Problem Relation Age of Onset Diabetes Mother other (thyroid disease) Mother Patient Allergies ALLERGIES Allergen Reactions Cefazolin Rash, Hives Other reaction(s): hives Penicillins Rash, Hives, Other: See Comments Other reaction(s): hives Current Medications Current Outpatient Medications on File Prior to Visit Medication Sig BD TUBERCULIN SYRINGE 1 mL 25 gauge x 5/8 syrg use as directed with B12 INJECTION gabapentin (NEURONTIN) 600 mg tablet Take 2 tablets by mouth three times daily for 90 days. (Patient taking differently: Take 800 mg by mouth three times daily.) ibuprofen (MOTRIN) 600 mg tablet Take 1 tablet by mouth three times daily. TAKE ONE TABLET EVERY 12HOURS NEEDED FOR PAIN gabapentin (NEURONTIN) 800 mg tablet Take 800 mg by mouth three times daily. Syringe with Needle, Safety (3CC SAFETY SYRINGE 25GX5/8) 3 mL 25 gauge x 5/8 syrg 1 mL once everymonth. For use with B12 injection cyanocobalamin (VITAMIN B-12) 1,000 mcg/mL Inject 1 mL intramuscularly once every month. omeprazole (PRILOSEC) 20 mg capsule Take 1 capsule by mouth once daily. Take prior to meal. Omeprazole 20 mg TbEC Take 20 mg by mouth once daily. Loperamide HCl (IMODIUM) 2 mg tab Take 1 tablet by mouth as needed. cholestyramine (QUESTRAN) 4 gram packet Take 1 Packet by mouth twice daily with meals. (Patient nottaking: Reported on 09/08/2022) No current facility-administered medications on file prior to visit. Social History Social History Tobacco Use Smoking status: Some Days Types: Cigarettes, Cigars Smokeless tobacco: Never Tobacco comments: occasional - social Substance Use Topics Alcohol use: Not Currently Comment: occasionally, beer or wine with dinner at times Drug use: Not Currently Comment: occasional says he uses for pain control, doesn't want to specify Review of Symptoms REVIEW OF SYSTEMS See HPI EXAM: BP 116/74 Pulse 109 Temp (!) 35.7 C (96.3 F) (Right Tympanic) Resp 16 Ht 177.8 cm (5' 10) Wt 68.9 kg (151 lb 12.8 oz) SpO2 99% BMI 21.78 kg/m General Appearance: Well appearing, alert, in no acute distress, well-hydrated, well nourished.. Skin: Patient with dark brown callus over balls of his feet. Toes have been debrided and are without eschar or cellulitis. No purulent drainage noted. . Extremities: No edema, clubbing or cyanosis. Good capillary refill. DP and PT pulses 2+ bilaterally Health Maintenance List COVID-19 VACCINE(1) Never done HEPATITIS A(1 of 2 - Risk 2-dose series) Never done PNEUMOCOCCAL(1 - PCV) Never done MENINGOCOCCAL B: Consider based on risk(1 of 4 - Increased Risk Bexsero 2-dose series) Never done MMR(1 of 2 - Risk 2-dose series) Never done DTAP,TDAP,TD(1 - Tdap) Never done LIPID SCREEN Never done DEPRESSION ASSESSMENT Never done INFLUENZA(1) Never done HEPATITIS B(1 of 3 - Risk 3-dose series) due on 2039 HEPATITIS C SCREENING Completed HIV SCREENING Completed ASSESSMENT/PLAN: 1. Frostbite, sequela - ICD9: 909.4, ICD10: T33.90XS (primary diagnosis) Patient being managed by foot and ankle specialist and has seen wound care. Appropriate management thus far. Will start Naproxen BID in place of ibuprofen. I do not feel comfortable refilling narcotic since he has history of methamphetamine abuse. Will keep scheduled appointment with podiatry and will need to establish care with provider here who is accepting new patients or continue management through [facility]. Discussed keeping feet warm and dry. Has a place to live indefinitely now. Red flags for re-assessment reviewed with patient in detail. 2. Foot pain, bilateral - ICD9: 729.5, ICD10: M79.671, M79.672 See above. Leon Pineda MD documented in this encounterSelect Medical [facility] Rehabilitation HospitalEvaluation noteNo assessment information availableWHenry County Hospital Work Phone: Evaluation note* Diagnosis Frostbite, sequela- Primary Foot pain, bilateral Pain in limb [facility] Additional Instructions Keep your feet and toes clean and dry. [facility] as soon as possible to recheck the wounds on your feet.[facility] Work Phone: Reason for referral (narrative)No reason for referral information availableWHenry County Hospital Work Phone: Assessments Diagnosis Fibromyalgia - Primary Unspecified myalgia and myositis Arthralgia, unspecified join t Muscle pain Summary Purpose Family History No Family History Records FoundNo Family History Records FoundNo Family History Records FoundNo Family History Records FoundNo Family History Records FoundNo Family History Records FoundNo Family History Records FoundNo Family History Records FoundNo Family History Records FoundNo Family History Records Found Advance Directives Advance Directive Response Recorded Date/ Time Living Will No August 19 022 5:19pm Power of C 13 Catapult Operator No August 19, 2022 5:19pm Advance Directive Response Recorded Date/ Time Living Will No August 27 4:40pm Power of C 13 Catapult Operator No August 27, 2022 4:40pm Advance Directive Response Recorded Date/ Time Do you have a Healthcare Power of C 13 Catapult Operator? No April 29, 2025 8:47pm Chief Complaint and Reason for Visit Chief Complaint N/T Chief Complaint N/T FOOT PAIN LOWER EXTREMITY Chief Complaint N/T FOOT PAIN LOWER EXTREMITY wound Chief Complaint Admit Date general April 29, 2025 8:2 7pm Additional Source Comments (unrecognized sect ion and content) No Status Records FoundNo Status Records FoundNo Status Records FoundNo Status Records FoundNo Status Records FoundNo Status Records FoundNo Status Records FoundNo Status Records FoundNo Status Records FoundNo Status Records Found INFORMATION SOURCE (unrecogn ized section and content) DATE CREATED AUTHOR 03/15/2018 [facility] DATE CREATED AUTHOR AUTHOR'S ORGANIZ ATION 03/22/2018 [facility] DATE CREATED AUTHOR AUTHOR'S ORGANIZ ATION 03/22/2018 [facility] DATE CREATED AUTHOR AUTHOR'S ORGANIZ ATION 03/22/2018 [facility] DATE CREATED AUTHOR AUTHOR'S ORGANIZ ATION 03/22/2018 [facility] DATE CREATED AUTHOR AUTHOR'S ORGANIZ ATION 03/22/2018 [facility] DATE CREATED AUTHOR AUTHOR'S ORGANIZ ATION 03/24/2018 [facility] DATE CREATED AUTHOR AUTHOR'S ORGANIZ ATION 05/15/2018 [facility] DATE CREATED AUTHOR AUTHOR'S ORGANIZ ATION 10/09/2022 [facility] DATE CREATED AUTHOR AUTHOR'S ORGANIZ ATION 04/13/2025 [facility] Goals (unrecognized section and content) Goals may be documented in a n alternate sectionGoals may be documented in an alternate sectionGoals may be documented in an alternate sectionGoals may be documented in an alternate section Source Comments (unrecognize d section and content) In the event this informatio n is protected by the Federal Confidentiality of Alcohol and Drug Abuse Patient Records regulations: The Federal rules restrict any use of the information to criminally investigate or prosecute any alcohol or drug abuse patient.[facility] HospitalIn the event this information is protected by the Federal Confidentiality of Alcohol and Drug Abuse Patient Records regulations: The Federal rules restrict any use of the information to criminally investigate or prosecute any alcohol or drug abuse patient.[facility] HospitalIn the event this information is protected by the Federal Confidentiality of Alcohol and Drug Abuse Patient Records regulations: The Federal rules restrict any use of the information to criminally investigate or prosecute any alcohol or drug abuse patient.[facility] Reason for Visit (unrecogniz ed section and content) Reason Comments Establish Care Transfer form Kevin gee Reason Onset Date Comments Population Health Navigation Outreach 02/02/2023 ACO No PCP list Care Teams (unrecognized sec tion and content) Sider Relationship Specialty Start Date End Date Leon Pineda MD [address], [place] [phone] PCP - General Family Medicine 02/02/23 Sider Relationship Specialty Start Date End Date Leon Pineda MD [address], [place] [phone] PCP - General Family Medicine 04/09/25 04/09/25 PodShavon dawson APRN.NUMERICAL CONTROL MACHINE TOOL OPERATOR [address], [place] [id number] [facility] 09/01/24 Wilma Giraldo APRN.NUMERICAL CONTROL MACHINE TOOL OPERATOR [address] [place], [place] [phone] [facility] 03/07/25 Team Status: Active Member Role/Relationship Status Dates No Primary Care Physician Primary Care Provider Active Team Status: Inactive Member Role/Relationship Status Dates Dr. Rian Strange MD Emergency Provider Active Sta rt: April 29, 2025 End: April 29, 2025 No Primary Care Physician Primary Care Provider Active Start: April 29, 2025 End: April 29, 2025 FOR RECORDS PERTAINING TO PATIENTS WHO ARE OR HAVE BEEN ENROLLED IN A CHEMICAL DEPENDENCY/SUBSTANCEABUSE PROGRAM, SOME INFORMATION MAY BE OMITTED. This clinical summary was aggregated from multiple sources. Caution should be exercised in using it in the provision of clinical care. This summary normalizes information from multiple sources, and as a consequence, information in this document may materially change the coding, format and clinical context of patient data. In addition, data may be omitted in some cases. CLINICAL DECISIONS SHOULD BE BASED ON THE PRIMARY CLINICAL RECORDS. [facility] [employer] [facility] provides no warranty or guarantee of the accuracy or completeness of information in this document.
[2025-04-30 21:07] VITALS: BP 130/87; PULSE 78; O2SAT 100
[2025-04-30 21:08] LABS: Alcohol, Blood (Medical)-Serum < 10.1 mg/dL (<=10.0)
[2025-04-30 21:09] LABS: AST(SGOT) 19 U/L (<=37); Alanine Aminotransfer ALT/SGPT 21 U/L (<=46); Albumin, Serum 3.9 g/dL (3.5-5.0); Alkaline Phosphatase 68 U/L (40-129); Anion Gap 11 (5-15); BUN 6 mg/dL (4-19); BUN/Creat Ratio 6.5 RATIO (10-20); Barbiturate Urine NEGATIVE (< 200 ng/mL); Benzodiazepine Urine NEGATIVE (< 200 ng/mL); Calcium,Total 8.8 mg/dL (7.6-11.0); Carbon Dioxide 25.8 mmol/L (21.0-32.0); Chloride 105 mmol/L (98-108); Estimated Creatinine Clearance 98.61 ml/min (50-250); Globulin 2.4 g/dL (2.2-4.2); Glucose 86 mg/dL (70-99); PCP Urine NEGATIVE (< 25 ng/mL); Potassium 3.7 mmol/L (3.3-5.1); THC Urine NEGATIVE (< 50 ng/mL)
[2025-04-30 23:14] VITALS: BP 130/87; PULSE 78; RESP 18; TEMP 36.6; O2SAT 100
== END 2025-05-01 01:25 ==
PROVIDERS: Emergency Provider Surgery; Visit Provider Surgery
DX: R45.851 Suicidal ideations (principal); F15.10 Other stimulant abuse, uncomplicated; F17.210 Nicotine dependence, cigarettes, uncomplicated; F17.290 Nicotine dependence, other tobacco product, uncomplicated; Z59.00 Homelessness unspecified
CPT/HCPCS: 80053; 80307; 82077; 85025; 99284

== ENCOUNTER → 2025-06-19 | Outpatient (CLI) | payer MEDICARE, MEDICAID, SELFPAY ==
[2025-06-19 12:29] LABS: Hematocrit 41.2 % (40-54); Hemoglobin 13.6 g/dL (13.0-16.5); Immature Granulocytes Count 0.010 X10^3/uL (0.0-0.0); Mean Corp Hgb Conc 33.0 g/dL (32-36); Mean Corpuscular Volume 90.4 fL (80-94); Mean Platelet Vol. 8.9 fl (6.2-12.0); NRBC Flagged by Analyzer 0 % (0-5); Platelet Count 306 K/mm3 (150-450); RBC Distribution Width CV 13.6 % (11.6-14.6); RBC Distribution Width SD 45.5 fl (35.1-43.9); Red Blood Count 4.56 M/mm3 (4.6-6.2); White Blood Count 5.6 K/mm3 (4.4-11.0)
[2025-06-19 13:08] LABS: AST(SGOT) 25 U/L (<=37); Alanine Aminotransfer ALT/SGPT 46 U/L (<=46); Albumin, Serum 4.3 g/dL (3.5-5.0); Alkaline Phosphatase 60 U/L (40-129); Anion Gap 12 (5-15); BUN 10 mg/dL (4-19); BUN/Creat Ratio 12.9 RATIO (10-20); Calcium,Total 9.2 mg/dL (7.6-11.0); Carbon Dioxide 24.3 mmol/L (21.0-32.0); Chloride 104 mmol/L (98-108); Globulin 2.5 g/dL (2.2-4.2); Glucose 101 mg/dL (70-99); Magnesium 1.8 mg/dL (1.5-2.2); Potassium 4.1 mmol/L (3.3-5.1)
[2025-06-19 13:09] LABS: Vitamin B12 < 150 pg/mL (180-914)
[2025-06-19 13:50] LABS: FOLATES,SERUM (FOLIC ACID) 29.20 ng/mL (4.60-34.80)
== END | disposition home or self-care (01) ==
LOC: VSLAB 10:47
PROVIDERS: PCP Nurse Practitioner Family; Visit Provider Nurse Practitioner Family
DX: R07.9 Chest pain, unspecified (principal); E53.8 Deficiency of other specified B group vitamins
CPT/HCPCS: 36415; 80053; 82607; 82746; 83735; 84439; 84443; 85025

== ENCOUNTER → 2025-09-25 | Outpatient (CLI) | payer MEDICARE, MEDICAID, SELFPAY ==
[2025-09-25 14:36] LABS: Hematocrit 38.4 % (40-54); Hemoglobin 12.7 g/dL (13.0-16.5); Immature Granulocytes Count 0.040 X10^3/uL (0.0-0.0); Mean Corp Hgb Conc 33.1 g/dL (32-36); Mean Corpuscular Volume 88.3 fL (80-94); Mean Platelet Vol. 9.1 fl (6.2-12.0); NRBC Flagged by Analyzer 0 % (0-5); Platelet Count 382 K/mm3 (150-450); RBC Distribution Width CV 12.5 % (11.6-14.6); RBC Distribution Width SD 40.6 fl (35.1-43.9); Red Blood Count 4.35 M/mm3 (4.6-6.2); White Blood Count 9.1 K/mm3 (4.4-11.0)
[2025-09-25 15:17] LABS: AST(SGOT) 17 U/L (<=37); Alanine Aminotransfer ALT/SGPT 19 U/L (<=46); Albumin, Serum 3.8 g/dL (3.5-5.0); Alkaline Phosphatase 58 U/L (40-129); Anion Gap 7 (7-18); BUN 8 mg/dL (4-19); BUN/Creat Ratio 10.1 RATIO (10-20); Calcium,Total 8.9 mg/dL (7.6-11.0); Carbon Dioxide 26.0 mmol/L (20.0-29.0); Chloride 108 mmol/L (96-106); Globulin 2.6 g/dL (2.2-4.2); Glucose 85 mg/dL (70-99); Potassium 4.0 mmol/L (3.5-5.1); Vitamin B12 577 pg/mL (180-914)
== END | disposition home or self-care (01) ==
PROVIDERS: PCP Nurse Practitioner Family; Referring Provider Nurse Practitioner Family; Visit Provider Nurse Practitioner Family
DX: E53.8 Deficiency of other specified B group vitamins (principal)
CPT/HCPCS: 36415; 80053; 82607; 85025